=== PATIENT | male | born 1935 | race Caucasian/White ===

== ENCOUNTER → 2018-03-14 14:28 | Outpatient (CLI) | payer MEDICARE, OTHER, SELFPAY ==
--- NOTE | 2018-03-14 14:31 | DI.RAD.S_ITS ---
PROCEDURE: XR ANKLE RT MIN 3V INDICATIONS: Pain in ankle and foot TECHNIQUE: 3 views of the ankle were acquired. COMPARISON: None. FINDINGS: Bones: No fractures or dislocations. Ankle mortise is normally aligned. No suspicious bony lesions. Degenerative changes of the medial and lateral malleoli as well as the talonavicular and inter-talar joints. Soft tissues: No tibiotalar joint effusion. Achilles tendon appears normal. IMPRESSION: No acute bony abnormality. Arthritic changes. Dictated by: Anant Shrestha M.D. on 03/14/2018 at 14:47 Approved by: Anant Shrestha M.D. on 03/14/2018 at 14:49
== END ==
PROVIDERS: PCP Family Medicine; Visit Provider Nurse Practitioner Family
DX: M79.671 Pain in right foot (principal)
CPT/HCPCS: 73610

== ENCOUNTER → 2018-05-27 09:11 | Outpatient (CLI) | payer MEDICARE, OTHER, SELFPAY ==
[2018-05-27 10:52] LABS: Cholesterol 107 mg/dL (140-199); HDL Cholesterol 54 mg/dL (40-60); LDL Cholesterol Calculated 37 mg/dL (<100); Triglycerides 79 mg/dL (35-150)
== END ==
PROVIDERS: PCP Family Medicine; Visit Provider Family Medicine
DX: E78.5 Hyperlipidemia, unspecified (principal)
CPT/HCPCS: 36415; 80061

== ENCOUNTER 2018-11-09 08:19 | Day surgery (SDC) | payer MEDICARE, OTHER, SELFPAY ==
--- NOTE | 2018-11-08 17:07 | PM.PREOP ---
Pre-operative Note Interval Note History & Physical reviewed/Exam performed by Physician: Yes Changes to H&P: No
--- NOTE | 2018-11-09 07:53 | P.OP_ITS ---
Operative Date/Time/Diagnoses Date of procedure: 11/09/18 Time of procedure: 09:45 Procedure & Clinicians Procedure: Preoperative diagnoses: 1. Complex surgery with use of capsular dye. 2. Mature or advanced nuclear sclerotic and cortical cataract with poor visibility of the anterior capsule increasing surgical risks of complications. Astigmatism which he elects to correct with a toric IOL. 3. Floppy iris syndrome. Preoperative diagnoses: 1. 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 Postoperative diagnoses: 1. Complex surgery with use of capsular dye , Malyguin ring, ReSur glue and placement of a toric posterior chamber intraocular lens implant. Surgeon: Nilsa Paulino MD Complications: none Specimen: None Implant: [id number] axis 142 Blood loss: None Anesthesia: Retrobulbar with monitored standby. Description of procedure: Dictated by: Nilsa Paulino MD Copy to: [facility] capsular dye to improve visibility and safety. Postoperative diagnoses: 1. Cataract removed with use of capsular dye and Malyguin ring with placement of a toric posterior chamber intraocular lens. Procedure: Complex Phacoemulsification with toric posterior chamber intraocular lens implant,Malyguin ring and capsular dye. Also REsur glue due to floppy iris. Surgeon: Nilsa Paulino MD Blood loss: None Anesthesia: Retrobulbar with monitored standby Description of procedure: Patient has presented with decreased vision due to cataract which is affecting activities of daily living. The patient wants surgery to improve vision. The patient was taken to the operating room and proparacaine drops were placed. Indelible ink evans were placed at the 90 and 180 degree meridian. He was then placed on the operating room table and given IV sedation. A retrobulbar block consisting of 6 cc of 2% xylocaine without epinephrine mixed half and half with 0.5% Marcaine with 1 cc of hyaluronidase added is placed between the medial and lateral 1/3 of the inferior orbital rim. Lid akinesia is obtain with 1% xylocaine with epinephrine infiltrated along the lid margin. The eye is manually massaged for 30 sec, prepped using Betadine solution, and draped in the usual sterile fashion. Temporal approach was made, a 1 mm side-port incision was performed 90 degrees from the planned corneal wound. Phenylephrine 1.5% mixed with 1% xylocaine 0.2 cc was placed into the anterior chamber. An air bubble was placed and Visudyne dye was placed to improve visibility of the anterior capsule. The dye was irrigated out to reduce bubbles. Viscoat followed by Crystal was then placed. A 2.6 mm clear incision at the 180 degree meridian with a 2.6 mm blade was placed. Due to symptomatic use and floppy iris syndrome a 7.0 mm Malyguin ring was inserted into the anterior chamber and then sequentially hooked to every quadrant of the iris. A 360 degree capsulorrhexis style capsulotomy was then performed with a cystitome needle on a [place] aided by the capsular ring. Hydrodelineation and hydrodissection were performed. The phacoemulsification unit is introduced, and sculpting notice used to groove the central lens. It was very dense and extra viscoelastic was used. Zonules were loose but held. It is then removed in chopping mode. Epi nucleus is removed with epinuclear mode and irrigation aspiration was used to remove the peripheral cortex. The posterior capsule is polished. The intraocular lens is selected, inspected, power confirmed, and placed in the posterior chamber at the 142 degree position. The iris ring was removed. The wound was stromally hydrated and tested for leaks,there was mild iris proloapse to the wound. It was repositioned and hydrated. ReSur glue was placed on the clear corneal incison and allowed to set for one minute. Vigamox 0.1 cc was placed into the anterior chamber. Kenalog 0.2 cc was placed in the superior subconjunctival space. A drop of antibiotic and was placed and then a contact lens for comfort due to the glue. The eye was patched and shielded. The patient was stable and returned to the recovery room in excellent condition. He will resume his Flomax today. Dictated by: Nilsa Paulino MD Copy to: [facility] Same procedure as scheduled: Yes
[2018-11-09] MEDS: PROPARACAINE 0.5% OPHTH SOL 2 DROPS EYE-OP ×2 (08:45→10:07)
[2018-11-09 08:50] VITALS: BP 121/74; PULSE 59; RESP 16; TEMP 36.2; O2SAT 95; BMI 24.7
[2018-11-09] MEDS: CATARACT EYE COMPOUND (10 DROPS/SYRINGE) 3 DROPS EYE-OP (09:06)
[2018-11-09] MEDS: PHENYLEPHRINE/LIDOCAINE VIAL (OR) 0.2 ML EYE-OP (10:00)
[2018-11-09] MEDS: MOXIFLOXACIN OPHTH DROPS 3 ML BOTTLE 2 DROPS INJ (10:01)
[2018-11-09] MEDS: CHONDROIDTIN/SOD HYALURONATE 1.05 ML SYRINGE INTRAOCULA (10:02)
[2018-11-09] MEDS: TRIAMCINOLONE 50 MG/5 ML VIAL INJ (10:02)
[2018-11-09] MEDS: BALANCED SALT IRRIG SOLN NO.2 15 ML IRRIG.SOLN IRR (10:04)
[2018-11-09] MEDS: HYALURONATE SODIUM 10 MG/ML SYRINGE INJ (10:04)
[2018-11-09] MEDS: LIDOCAINE 1% W/EPI INJ 20 ML INJ (10:05)
[2018-11-09] MEDS: LIDOCAINE 2% 4 ML, BUPIVACAINE 0.5% (PF) 4 ML, HYALURONIDASE 150 UNIT INJ (10:06)
[2018-11-09] MEDS: NEOMYCIN/POLY/DEX OPHTH OINT 1 APPLIC EYE-LEFT (10:07)
[2018-11-09] MEDS: TRYPAN BLUE 0.5 ML SYRINGE INJ (10:08)
[2018-11-09] MEDS: BALANCED SALT IRRIG SOLN NO.2 500 ML, EPINEPHrine 1 MG IRR (10:09)
[2018-11-09] MEDS: OFLOXACIN 0.3% OPHTH 5 ML 2 DROPS EYE-LEFT (10:09)
--- NOTE | 2018-11-09 10:31 | SUR.OPER ---
Resure sealant lot [id number], exp. 2019-01-19
[2018-11-09 10:45] VITALS: BP 121/66; PULSE 69; RESP 15; TEMP 36.1; O2SAT 93
[2018-11-09 11:01] VITALS: BP 122/75; PULSE 66; RESP 16; TEMP 36.6; O2SAT 97
== END 2018-11-09 11:05 | disposition home or self-care (01) ==
LOC: OR 08:20
PROVIDERS: PCP Family Medicine; Visit Provider Ophthalmology
PROC: (CPT 66982; principal; 2018-11-09 09:45)
DX: H25.12 Age-related nuclear cataract, left eye (principal); H52.202 Unspecified astigmatism, left eye; H21.81 Floppy iris syndrome
CPT/HCPCS: 66982; J0171; J2250; J2704; J3010; J3301; J3470; V2787

== ENCOUNTER → 2018-11-11 08:54 | Outpatient (CLI) | payer MEDICARE, OTHER, SELFPAY ==
[2018-11-11 09:39] LABS: Add Manual Diff / Slide Review NO; Basophils Percent Auto 0.3 % (0-2); Eosinophils Percent Auto 1.8 % (2-4); Hematocrit 46.2 % (41-53); Hemoglobin 15.9 g/dL (13.5-17.5); Lymphocytes Percent Auto 21.6 % (25-40); Mean Corpuscular HGB Conc 34.3 % (30-36); Mean Corpuscular Hemoglobin 33.8 PG (26-34); Mean Corpuscular Volume 98.6 fL (80-100); Monocytes Percent Auto 9.3 % (3-14); Neutrophils Absolute Auto 3000 /uL (1500-7000); Platelet Count 182 X10^3/uL (150-400); Red Blood Cell Count 4.69 X10^6/uL (4.5-5.9); Red Cell Distribution Width 12.8 % (11.6-14.8); White Blood Cell Count 4.5 X10^3/uL (4.5-11.0)
[2018-11-11 09:42] LABS: Alanine Aminotransferase 39 IU/L (21-72); Albumin 4.3 g/dL (3.5-5.0); Albumin Globulin Ratio 1.5 (1.0-2.8); Alkaline Phosphatase 85 U/L (38-126); Aspartate Aminotransferase 34 IU/L (17-59); BUN Creatinine Ratio 15.6 (6-22); Bilirubin Total 1.1 mg/dL (0.2-1.3); Blood Urea Nitrogen 14 mg/dL (9-20); Carbon Dioxide 27 mmol/L (22-32); Chloride 105 mmol/L (98-107); Cholesterol 165 mg/dL (140-199); Estimated Glomerular Filt Rate > 60.0 mL/min (>60); Globulin 2.8 g/dL (1.7-4.1); Glucose 107 mg/dL (80-110); HDL Cholesterol 47 mg/dL (40-60); HEMOLYSIS < 15 (0-50); LDL Cholesterol Calculated 100 mg/dL (<100); Potassium 4.4 mmol/L (3.4-5.1); Sodium 142 mmol/L (137-145); Total Protein 7.1 g/dL (6.3-8.2); Triglycerides 91 mg/dL (35-150)
[2018-11-11 10:12] LABS: Prostate Specific Antigen Scrn 2.94 ng/mL (0.1-4.0)
== END ==
PROVIDERS: PCP Family Medicine; Visit Provider Family Medicine
DX: I10 Essential (primary) hypertension (principal); E78.5 Hyperlipidemia, unspecified; I25.10 Atherosclerotic heart disease of native coronary artery without angina pectoris; Z12.5 Encounter for screening for malignant neoplasm of prostate
CPT/HCPCS: 36415; 80053; 80061; 84443; 85025; G0103

== ENCOUNTER → 2018-11-29 16:34 | Outpatient (CLI) | payer MEDICARE, OTHER, SELFPAY ==
--- NOTE | 2018-11-29 16:40 | DI.MRI.S_ITS ---
PROCEDURE: MR ANKLE RT WO CON INDICATIONS: ANTERIOR RIGHT ANKLE PAIN, WEAKNESS TECHNIQUE: Noncontrast sagittal T1 spin echo and T2 fast spin echo with fat saturation, axial proton density fast spin echo and T2 fast spin echo with fat saturation, coronal T1 spin echo and T2 fast spin echo with fat saturation through the ankle/hindfoot. COMPARISON: None. FINDINGS: Image quality: Excellent. Bones and joints: No bone marrow contusions or fractures. There is [id number] mid foot degeneration with mild osteophytosis and scattered foci of subchondral edema. No hindfoot coalitions. No osteochondral injuries of the talar dome. No pathologic joint effusions. Medial structures: The posterior tibialis, flexor digitorum longus, and flexor hallucis longus tendons are intact. The posterior tibial neurovascular bundle appears normal within the tarsal tunnel, without extrinsic mass effect. The deltoid ligament is irregular and attenuated in appearance with associated small osteophytes along its attachment sites as well as small avulsion fragment. The findings is consistent with sequelae of a prior high-grade sprain. There are fibers which appear intact. The spring ligament components appear intact. Lateral structures: The anterior talofibular, calcaneofibular, and posterior talofibular ligaments appear intact. More superiorly, the anterior and posterior tibiofibular ligaments appear intact, as is the intermalleolar ligament. The tibiofibular syndesmosis is normal in width at 2 mm or less. The peroneus longus and brevis tendons appear intact. There is a prominent bony peroneal tubercle with an associated fibrous band attaching to the calcaneus posterior to the peroneal tendons consistent with postsurgical changes. The sinus tarsi demonstrates preserved high signal with associated mild edema and small adjacent fluid suggesting sequelae of ligamentous sprains. The calcaneonavicular and calcaneocuboid components of the bifurcate ligament appear intact. The dorsal calcaneocuboid ligament appears intact. Anterior structures: There is tendinopathy of the tibialis anterior tendon with a complete rupture and tendon retraction to the level of the tibiotalar joint. There is mild associated edema and fluid distally. The extensor hallucis longus and extensor digitorum longus tendons appear intact. The dorsal talonavicular ligament appears intact. Posterior and plantar structures: Achilles tendon is intact with mild tendinopathy. Medial and lateral bands of the plantar fascia are of normal thickness. There is a small plantar calcaneal enthesophyte. No abductor digiti quinti muscle atrophy to suggest Linares neuropathy. IMPRESSION: 1. 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 There is associated underlying tendinopathy noted. 2. Sequelae of a prior high-grade sprain of the deltoid ligament. 3. Postsurgical changes demonstrated posterior to the peroneal tendons at the peroneal tubercle. 4. [id number] mid foot degeneration. Dictated by: Moustapha Espinosa M.D. on 11/30/2018 at 10:42 Approved by: Moustapha Espinosa M.D. on 11/30/2018 at 10:51
== END ==
PROVIDERS: Family Provider Family Medicine; PCP Family Medicine; Visit Provider Orthopaedic Surgery Foot and Ankle Surgery
DX: M25.571 Pain in right ankle and joints of right foot (principal); S96.811A Strain of other specified muscles and tendons at ankle and foot level, right foot, initial encounter; M19.071 Primary osteoarthritis, right ankle and foot
CPT/HCPCS: 73721

== ENCOUNTER 2018-11-30 07:54 | Day surgery (SDC) | payer MEDICARE, OTHER, SELFPAY ==
--- NOTE | 2018-11-27 12:44 | PM.PREOP ---
Pre-operative Note Interval Note History & Physical reviewed/Exam performed by Physician: Yes Changes to H&P: No
--- NOTE | 2018-11-27 12:44 | PM.OP.1 ---
Operative Date/Time/Diagnoses Date of procedure: 11/30/18 Time of procedure: 08:45 Procedure & Clinicians Procedure: Preoperative diagnoses: 1. Complex surgery with use of capsular dye. 2. Mature or advanced nuclear sclerotic and cortical cataract with poor visibility of the anterior capsule increasing surgical risks of complications. 3. Astigmatism which he elects to correct with a toric intraocular lens. 4. 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 Postoperative diagnoses: 1. Complex surgery for mature cataract with use of capsular dye, a Malyguin ring and placement of a toric posterior chamber intraocular lens implant. Surgeon: Nilsa Paulino MD Complications: none Specimen: None Implant:[id number] +23.5Axis 020 Blood loss: None Anesthesia: Retrobulbar with monitored standby. Description of procedure: Dictated by: Nilsa Paulino MD Copy to: [facility] Procedure: Complex phacoemulsification with use of capsular dye, Malyguin ring and phacoemulsification with toric posterior chamber intraocular lens implant. Surgeon: Nilsa Paulino MD Blood loss: None Anesthesia: Retrobulbar with monitored standby Description of procedure: Patient has presented with decreased vision due to cataract which is affecting activities of daily living. The patient wants surgery to improve vision. 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 Understands increased risk of complications due to eye findings. The patient was taken to the operating room and given IV sedation. Topical proparacaine drops were placed. Indelible ink evans were placed at the 90 and 180 degree meridian. He was then placed on the operating room table. A retrobulbar block consisting of 6 cc of 2% xylocaine without epinephrine mixed half and half with 0.5% Marcaine with 1 cc of hyaluronidase added is placed between the medial and lateral 1/3 of the inferior orbital rim. Lid akinesia is obtain with 1% xylocaine with epinephrine infiltrated along the lid margin. The eye is manually massaged for 30 sec, prepped using Betadine solution, and draped in the usual sterile fashion. Temporal approach was made, a 1 mm side-port incision was performed 90 degrees from the planned corneal wound. Phenylephrine 1.5% mixed with 1% xylocaine 0.2 cc was placed into the anterior chamber. An air bubble was placed and Visudyne dye was placed to improve visibility of the anterior capsule. The dye was irrigated out to reduce bubbles. Viscoat followed by Crystal was then placed. A 2.6 mm clear incision with a 2.6 mm blade was placed. A 7.0 mm Malyuguin ring was opened into the anterior chamber and sequentially placed in each quadrant of the iris. Using this to stabilize the iris, enlarge the pupil and improve visibility a 360 degree capsulorrhexis style capsulotomy was then performed with a cystitome needle on [facility]. Hydrodelineation and hydrodissection were performed. The phacoemulsification unit is introduced, and sculpting used to groove the central lens. Very dense and zonules were somewhat loose but remain in position. It is then removed in chopping mode. Epi nucleus is removed with epinuclear mode and irrigation aspiration was used to remove the peripheral cortex. The posterior capsule is polished. Corneal markings were placed at the desired meridian 20?. The intraocular lens is selected, inspected, power confirmed, and placed in the posterior chamber in position. The pupil was not constricted with Miostat. The wound was stromally hydrated and tested for leaks, there was none and was left sutureless. Due to the longer corneal tunel to prrvent iris prolapse, which did not occur, a small Descemte's flap was present at the incision. Vigamox 0.1 cc was placed into the anterior chamber. An air bubble was then placed to stabilize the Descemet's flap.Kenalog 0.2 cc was placed in the superior subconjunctival space. A drop of antibiotic and was placed and the eye was patched and shielded. The patient was stable and returned to the recovery room in excellent condition. Dictated by: Nilsa Paulino MD Copy to: [facility]
--- NOTE | 2018-11-27 12:58 | P.OP_ITS ---
Operative Date/Time/Diagnoses Date of procedure: 11/30/18 Time of procedure: 08:45 Procedure & Clinicians Procedure: Preoperative diagnoses: 1. Complex surgery with use of capsular dye. 2. Mature or advanced nuclear sclerotic and cortical cataract with poor visibility of the anterior capsule increasing surgical risks of complications. 3. Astigmatism which he elects to correct with a toric intraocular lens. 4. 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 Postoperative diagnoses: 1. Complex surgery for mature cataract with use of capsular dye, a Malyguin ring and placement of a toric posterior chamber intraocular lens implant. Surgeon: Nilsa Paulino MD Complications: none Specimen: None Implant:[id number] +23.5Axis 020 Blood loss: None Anesthesia: Retrobulbar with monitored standby. Description of procedure: Dictated by: Nilsa Paulino MD Copy to: [facility] Procedure: Complex phacoemulsification with use of capsular dye, Malyguin ring and phacoemulsification with toric posterior chamber intraocular lens implant. Surgeon: Nilsa Paulino MD Blood loss: None Anesthesia: Retrobulbar with monitored standby Description of procedure: Patient has presented with decreased vision due to cataract which is affecting activities of daily living. The patient wants surgery to improve vision. 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 Understands increased risk of complications due to eye findings. The patient was taken to the operating room and given IV sedation. Topical proparacaine drops were placed. Indelible ink evans were placed at the 90 and 180 degree meridian. He was then placed on the operating room table. A retrobulbar block consisting of 6 cc of 2% xylocaine without epinephrine mixed half and half with 0.5% Marcaine with 1 cc of hyaluronidase added is placed between the medial and lateral 1/3 of the inferior orbital rim. Lid akinesia is obtain with 1% xylocaine with epinephrine infiltrated along the lid margin. The eye is manually massaged for 30 sec, prepped using Betadine solution, and draped in the usual sterile fashion. Temporal approach was made, a 1 mm side-port incision was performed 90 degrees from the planned corneal wound. Phenylephrine 1.5% mixed with 1% xylocaine 0.2 cc was placed into the anterior chamber. An air bubble was placed and Visudyne dye was placed to improve visibility of the anterior capsule. The dye was irrigated out to reduce bubbles. Viscoat followed by Crystal was then placed. A 2.6 mm clear incision with a 2.6 mm blade was placed. A 7.0 mm Malyuguin ring was opened into the anterior chamber and sequentially placed in each quadrant of the iris. Using this to stabilize the iris, enlarge the pupil and improve visibility a 360 degree capsulorrhexis style capsulotomy was then performed with a cystitome needle on [facility]. Hydrodelineation and hydrodissection were performed. The phacoemulsification unit is introduced, and sculpting used to groove the central lens. Very dense and zonules were somewhat loose but remain in position. It is then removed in chopping mode. Epi nucleus is removed with epinuclear mode and irrigation aspiration was used to remove the peripheral cortex. The posterior capsule is polished. Corneal markings were placed at the desired meridian 20?. The intraocular lens is selected, inspected, power confirmed, and placed in the posterior chamber in position. The pupil was not constricted with Miostat. The wound was stromally hydrated and tested for leaks , there was none and was left sutureless. Due to the longer corneal tunel to prrvent iris prolapse, which did not occur, a small Descemte's flap was present at the incision. Vigamox 0.1 cc was placed into the anterior chamber. An air bubble was then placed to stabilize the Descemet's flap.Kenalog 0.2 cc was placed in the superior subconjunctival space. A drop of antibiotic and was placed and the eye was patched and shielded. The patient was stable and returned to the recovery room in excellent condition. Dictated by: Nilsa Paulino MD Copy to: [facility]
[2018-11-30] MEDS: PROPARACAINE 0.5% OPHTH SOL 2 DROPS EYE-OP (08:10)
[2018-11-30] MEDS: CATARACT EYE COMPOUND (10 DROPS/SYRINGE) 3 DROPS EYE-OP ×3 (08:15→08:25)
[2018-11-30 08:20] VITALS: BP 131/72; PULSE 56; RESP 20; TEMP 36.1; O2SAT 97; BMI 24.7
[2018-11-30] MEDS: BALANCED SALT IRRIG SOLN NO.2 15 ML IRR (09:07)
[2018-11-30] MEDS: HYALURONATE SODIUM 10 MG/ML SYRINGE INJ (09:07)
[2018-11-30] MEDS: LIDOCAINE 1% W/EPI INJ 20 ML INJ (09:07)
[2018-11-30] MEDS: CHONDROIDTIN/SOD HYALURONATE 1.05 ML SYRINGE INTRAOCULA (09:07)
[2018-11-30] MEDS: OFLOXACIN 0.3% OPHTH 5 ML 2 DROPS EYE-RIGHT (09:08)
[2018-11-30] MEDS: NEOMYCIN/POLY/DEX OPHTH OINT 1 APPLIC EYE-RIGHT (09:08)
[2018-11-30] MEDS: MOXIFLOXACIN OPHTH DROPS 3 ML BOTTLE 2 DROPS INJ (09:08)
[2018-11-30] MEDS: PHENYLEPHRINE/LIDOCAINE VIAL (OR) 0.2 ML EYE-OP (09:09)
[2018-11-30] MEDS: TRYPAN BLUE 0.5 ML SYRINGE INJ (09:09)
[2018-11-30] MEDS: TRIAMCINOLONE 50 MG/5 ML VIAL INJ (09:09)
[2018-11-30] MEDS: BALANCED SALT IRRIG SOLN NO.2 500 ML, EPINEPHrine 1 MG IRR (09:10)
[2018-11-30] MEDS: LIDOCAINE 2% 4 ML, BUPIVACAINE 0.5% (PF) 4 ML, HYALURONIDASE 150 UNIT INJ (09:10)
[2018-11-30 09:40] VITALS: BP 122/68; PULSE 70; RESP 20; TEMP 36.1; O2SAT 95
== END 2018-11-30 09:55 | disposition home or self-care (01) ==
LOC: OR 07:57
PROVIDERS: Family Provider Family Medicine; PCP Family Medicine; Visit Provider Ophthalmology
PROC: (CPT 66982; principal; 2018-11-30 08:45)
DX: H25.11 Age-related nuclear cataract, right eye (principal); H52.201 Unspecified astigmatism, right eye; H21.81 Floppy iris syndrome
CPT/HCPCS: 66982; J0171; J2250; J3010; J3301; J3470; V2787

== ENCOUNTER 2019-08-12 00:42 | Emergency (ER) | payer MEDICARE, OTHER, SELFPAY ==
[2019-08-12 00:54] VITALS: BP 155/81; PULSE 77; RESP 20; TEMP 36.5; O2SAT 97
[2019-08-12 00:55] VITALS: BP 150/81; PULSE 77; RESP 20; TEMP 36.5; O2SAT 97
--- NOTE | 2019-08-12 02:38 | ED.ALLEREA ---
HPI - Allergic Reaction General Chief complaint: Allergic Reaction Stated complaint: Rash on legs and arms Time Seen by Provider: 08/12/19 02:37 Source: patient Mode of arrival: Ambulatory Limitations: no limitations History of Present Illness HPI narrative: A 2nd 83-year-old male comes to the emergency department with complaint of rash. Patient states that it is red it is not raised but it is very itchy. It started this evening. He has had these symptoms off in the past but usually it is slow progress is over 3 days and then improves with treatment with Benadryl and ice packs. Patient states this time it came on much more quickly and seemed to spread much farther than it typically does including his torso when it is typically just his extremities. Patient states he did have some exposure to [place] he has attributed to that but he is not sure. This week he started a new status on Wednesday, he also had his flu shot on Wednesday and he had a shot yesterday in his hip of steroids. He does not know if any of these could have contributed to his symptoms. He denies any other symptoms. No fevers, chills no swelling in the oropharynx, no wheezing or difficulty with breathing, no chest pain, no nausea, no vomiting. No other new GI or urinary symptoms. Related Data Home Medications Medication Instructions Recorded Confirmed ASPIRIN (#ASPIR 81) 81 mg PO Q DAY #0 01/26/12 08/10/19 CA PANTOTHENATE/FOLIC ACID/VIT 1 tab PO Q DAY #0 01/26/12 08/10/19 (MULTIVITAMIN) cholecalciferol (vitamin D3) 2,000 iu PO QDAY #0 01/26/12 08/10/19 [Vitamin D3] fluorouracil [Efudex] 1 ramon TOPICAL QDAY PRN 11/09/18 08/10/19 psyllium husk (aspartame) [Konsyl 1 cap PO SEE INSTRUCTIONS 11/09/18 08/10/19 Sugar-Free (aspartame)] Previous Rx's Medication Instructions Recorded cyclobenzaprine 10 mg PO TIDP PRN #60 tab 11/30/17 ibuprofen 600 mg PO Q6HP PRN #90 tab 11/30/17 nitroglycerin 0.4 mg sublingual 0.4 mg SUBLINGUAL SEE INSTRUCTIONS 08/01/19 tablet #30 tab rosuvastatin 5 mg tablet 5 mg PO DAILY #90 tab 08/01/19 tamsulosin 0.4 mg capsule 0.4 mg PO QDAY #90 cap 08/01/19 Allergies Allergy/AdvReac Type Severity Reaction Status Date / Time sour cream Allergy Mild Uncoded 08/10/19 09:57 BLUE CHEESE Allergy Unknown Uncoded 08/10/19 09:57 GORGONZOLA Allergy Unknown Uncoded 08/10/19 09:57 Review of Systems Review of Systems ROS Unobtainable: All systems reviewed & are unremarkable except as noted in HPI and below Patient History Family/Social History Social History marital status: household members: spouse Smoking Status: Never smoker alcohol intake: never substance use type: does not use Substance Use Type: does not use Exam Narrative Exam Narrative: GEN: well nourished, well appearing elderly male, alert and oriented x 3, patient appears to be in no acute distress. HEENT: Atraumatic, pupils are equal round reactive to light, extraocular movements are intact, nares are clear, TMs shows cerumen bilaterally. Throat is clear without any exudates, erythema, tonsillar enlargement or uvular deviation, no facial droop. Patient is little bit hoarse but states that is his normal voice. No muffled voice. HEART: Regular rate and rhythm without murmur, clicks, rubs. LUNGS:Lungs clear to auscultation, no wheezes, rales, crackles, chest moves symmetrically ABD:bowel sounds normal, soft, non-tender, no guarding, rebound, rigidity, no masses noted, no hepatosplenomegaly :No CVA tenderness MSCL: Non-tender, no muscle atrophy, muscles strength 5/5 upper and lower extremities, full range of motion, normal gait NEURO:CN 2-12 intact, sensation normal SKIN: Patient has erythematous macular rash that is not raised it is sort of patchy but does not have a specific pattern. Noted on the upper torso and chest and abdomen. Also upper extremities and lower extremities. No vesicles no other skin changes. Initial Vital Signs Initial Vital Signs: Vital Signs Temperature 97.7 F 08/12/19 00:54 Pulse Rate 77 08/12/19 00:54 Respiratory Rate 20 08/12/19 00:54 Blood Pressure 155/81 H 08/12/19 00:54 Pulse Oximetry 97 08/12/19 00:54 Course Orders Ordered: Discontinued Medications Prednisone (Deltasone) 60 mg PO NOW ONE Stop: 08/12/19 02:53 Last Admin: 08/12/19 02:59 Dose: Not Given Documented by: ROBBFARL Prednisone (Deltasone) 60 mg PO NOW ONE Stop: 08/12/19 03:01 Last Admin: 08/12/19 03:09 Dose: 60 mg Documented by: LISA Vital Signs Vital signs: Vital Signs - 8 hr 08/12/19 00:54 08/12/19 00:55 08/12/19 03:01 Temperature 97.7 F 97.7 F Pulse Rate 77 77 66 Respiratory Rate 20 20 18 Blood Pressure 150/81 H Blood Pressure [Left Arm] 155/81 H 147/70 H Pulse Oximetry 97 97 97 08/12/19 03:10 Temperature Pulse Rate 67 Respiratory Rate 15 Blood Pressure Blood Pressure [Left Arm] Pulse Oximetry 98 MDM - Allergic Reaction MDM Narrative Medical decision making narrative: Unsure of the cause of patient's rash, sound similar to the one he has had in the past but he also has had 3 potential exposures today although the steroid injection is unlikely. Patient does not have any anaphylactic type symptoms. This rash does not appear consistent with hives. He initiated primary care physician for this several times in the past and is happy to follow with them. Discharge Plan Departure Patient Disposition: Home Clinical Impression: Rash Discharge Date/Time: 08/12/19 03:10 Instructions: DI for Rash Activity Restrictions/Additional Instructions: Follow-up with your primary care, call Wednesday for an appointment. Take prednisone once daily until gone. Continue ice packs as needed for symptoms. You may also continue Benadryl 1-2 tablets every 6 hours as needed for symptoms. I would recommend holding here statin until your symptoms resolved and then potentially adding it back to see if there is any recurrence. Return to the emergency department for fevers greater 100.4, swelling of her face, lips, tongue, difficulty breathing, chest pain, persistent vomiting, black or bloody stools new swelling of extremities or other new or concerning symptoms. Prescriptions: No Action ASPIRIN (#ASPIR 81) 81 mg PO Q DAY Qty: 0 RF: 0 CA PANTOTHENATE/FOLIC ACID/VIT (MULTIVITAMIN) 1 tab PO Q DAY Qty: 0 RF: 0 cholecalciferol (vitamin D3) [Vitamin D3] 2,000 UNIT capsule 2,000 iu PO QDAY Qty: 0 RF: 0 cyclobenzaprine 10 MG tablet 10 mg PO TIDP PRNQty: 60 RF: 0 ibuprofen 600 MG tablet 600 mg PO Q6HP PRNQty: 90 RF: 3 nitroglycerin [Nitrostat] 0.4 mg tablet, sublingual 0.4 mg Sublingual SEE INSTRUCTIONS Qty: 30 RF: 3 tamsulosin [Flomax] 0.4 mg capsule 0.4 mg PO QDAY Qty: 90 RF: 3 rosuvastatin [Crestor] 5 mg tablet 5 mg PO DAILY Qty: 90 RF: 3 fluorouracil [Efudex] 5 % cream 1 ramon Topical QDAY PRN (Reason: skin cancer ) RF: 0 psyllium husk (aspartame) [Konsyl Sugar-Free (aspartame)] 450 GM powder 1 cap PO SEE INSTRUCTIONS RF: 0 Referrals: Vinayak Albert MD [Primary Care Provider] -
[2019-08-12 03:01] VITALS: BP 147/70; PULSE 66; RESP 18; O2SAT 97
[2019-08-12] MEDS: predniSONE 20 MG TABLET 60 MG PO (03:09)
[2019-08-12 03:10] VITALS: PULSE 67; RESP 15; O2SAT 98
== END 2019-08-12 03:10 | disposition home or self-care (01) ==
PROVIDERS: Emergency Provider Emergency Medicine; Family Provider Family Medicine; PCP Family Medicine
DX: R21 Rash and other nonspecific skin eruption (principal)
CPT/HCPCS: 99282; 99283

== ENCOUNTER → 2019-09-21 14:30 | Outpatient (CLI) | payer MEDICARE, OTHER, SELFPAY ==
--- NOTE | 2019-09-21 14:33 | DI.RAD.S_ITS ---
PROCEDURE: XR KNEE RT 3V INDICATIONS: rt knee pain TECHNIQUE: 3 views of the knee were acquired. COMPARISON: None. FINDINGS: Bones: No fractures or dislocations. No suspicious bony lesions. Severe patellofemoral joint space narrowing. Scattered degenerative subchondral sclerosis and spurring. Soft tissues: Small joint effusion. No suspicious soft tissue calcifications. IMPRESSION: Severe right knee joint degeneration, most pronounced at the patellofemoral compartment. Small joint effusion Dictated by: Mati Mckeon M.D. on 09/21/2019 at 16:39 Approved by: Mati Mckeon M.D. on 09/21/2019 at 16:40
== END ==
PROVIDERS: PCP Family Medicine; Visit Provider Family Medicine
DX: S83.8X1A Sprain of other specified parts of right knee, initial encounter (principal); M25.561 Pain in right knee; M17.11 Unilateral primary osteoarthritis, right knee; M25.461 Effusion, right knee; X58.XXXA Exposure to other specified factors, initial encounter
CPT/HCPCS: 73562

== ENCOUNTER → 2019-11-13 08:33 | Outpatient (CLI) | payer MEDICARE, OTHER, SELFPAY ==
[2019-11-13 09:39] LABS: Add Manual Diff / Slide Review NO; Basophils Absolute Auto 0 /uL (0-100); Basophils Percent Auto 0.4 % (0-2); Eosinophils Absolute Auto 200 /uL (0-450); Eosinophils Percent Auto 4.3 % (2-4); Hematocrit 44.1 % (41-53); Hemoglobin 14.7 g/dL (13.5-17.5); Lymphocytes Absolute Auto 900 /uL (1100-4500); Lymphocytes Percent Auto 17.2 % (25-40); Mean Corpuscular HGB Conc 33.4 % (30-36); Mean Corpuscular Hemoglobin 33.4 PG (26-34); Mean Corpuscular Volume 100.1 fL (80-100); Monocytes Absolute Auto 500 /uL (0-900); Monocytes Percent Auto 9.4 % (3-14); Neutrophils Absolute Auto 3600 /uL (1500-7000); Neutrophils Percent Auto 68.7 % (50-75); Platelet Count 191 X10^3/uL (150-400); Red Blood Cell Count 4.41 X10^6/uL (4.5-5.9); Red Cell Distribution Width 13.3 % (11.6-14.8); White Blood Cell Count 5.3 X10^3/uL (4.5-11.0)
[2019-11-13 10:08] LABS: Alanine Aminotransferase 28 IU/L (<50); Albumin 3.9 g/dL (3.5-5.0); Albumin Globulin Ratio 1.6 (1.0-2.8); Alkaline Phosphatase 103 U/L (38-126); Aspartate Aminotransferase 32 IU/L (17-59); Bilirubin Total 0.7 mg/dL (0.2-1.3); Blood Urea Nitrogen 24 mg/dL (9-20); Carbon Dioxide 28 mmol/L (22-32); Chloride 106 mmol/L (98-107); Estimated Glomerular Filt Rate > 60.0 mL/min (>60); Globulin 2.5 g/dL (1.7-4.1); Glucose 97 mg/dL (80-110); HEMOLYSIS < 15 (0-50); Potassium 4.5 mmol/L (3.4-5.1); Sodium 140 mmol/L (137-145); Total Protein 6.4 g/dL (6.3-8.2)
== END ==
PROVIDERS: PCP Family Medicine; Visit Provider Family Medicine
DX: Z01.812 Encounter for preprocedural laboratory examination (principal)
CPT/HCPCS: 80053; 85025

== ENCOUNTER 2019-11-22 07:50 | Day surgery (SDC) | payer MEDICARE, OTHER, SELFPAY ==
[2019-11-21 08:18] VITALS: BMI 19.3
[2019-11-22] VITALS (12 sets, daily range): BP systolic 91–143; BP diastolic 33–86; PULSE 55–71; RESP 11–17; TEMP 36–36.7; O2SAT 93–97; BMI 19.3
--- NOTE | 2019-11-22 07:36 | DI.RAD.S_ITS ---
PROCEDURE: XR KNEE RT 1TO2V INDICATIONS: post op TECHNIQUE: 2 view(s) of the knee acquired. COMPARISON: [facility], , XR KNEE RT 3V, 09/21/2019, 14:30. FINDINGS: Bones: Patient is status post knee joint arthroplasty. Hardware components are in expected positions. Visualized bony structures are intact. Soft tissues: Overlying postoperative changes are noted. IMPRESSION: Normal alignment after right total knee arthroplasty. Dictated by: Williams Fuentes M.D. on 11/22/2019 at 11:22 Approved by: Williams Fuentes M.D. on 11/22/2019 at 11:23
[2019-11-22] MEDS: LACTATED RINGERS 1,000 ML 42 ML IV ×2 (08:30→10:30)
[2019-11-22] MEDS: PREGABALIN 75 MG CAPSULE PO (08:32)
[2019-11-22] MEDS: ACETAMINOPHEN 325 MG TABLET 975 MG PO (08:32)
[2019-11-22] MEDS: CELECOXIB 200 MG CAPSULE PO (08:33)
--- NOTE | 2019-11-22 08:57 | PM.PREOP ---
Pre-operative Note Interval Note History & Physical reviewed/Exam performed by Physician: Yes Changes to H&P: No
[2019-11-22] MEDS: MIDAZOLAM 2 MG/2 ML VIAL 1 MG IV (09:00)
[2019-11-22] MEDS: fentaNYL 100 MCG/2 ML INJ 50 MCG IV (09:00)
[2019-11-22] MEDS: CEFAZOLIN 2 GM/100 ML FROZ.PIGGY IV ×2 (09:14→17:14)
--- NOTE | 2019-11-22 09:17 | SUR.PREOP ---
Block start time [0859] . Monitoring initiated and maintained throughout procedure. Oxygen and medications given per anesthesiologist instructions. Patient remained stable throughout procedure, no adverse reactions noted. Block end time [0909
[2019-11-22] MEDS: LIDOCAINE 1% W/EPI 20 ML INJ (09:20)
--- NOTE | 2019-11-22 09:35 | P.OP_ITS ---
Operative Date/Time/Diagnoses Date of procedure: 11/22/19 Time of procedure: 11:02 Pre-op diagnosis: Right knee osteoarthritis Post-op diagnosis: same Procedure & Clinicians Procedure: Right total knee arthroplasty Same procedure as scheduled: Yes Indications: The patient presents today for total knee arthroplasty after failure of conservative treatment. The nature of the procedure including the risks and benefits, alternatives, postoperative course and expected outcome were discussed and all questions answered. Consent was obtained. Operative site confirmed and marked. Surgeon: Moustapha Leon Motor Racer: Jimenez Adams Anesthesia Type: Spinal, Peripheral nerve block and Local Operative Notes Findings: The knee had severe osteoarthritis with moderate valgus alignment. The knee balanced well with just routine osteophyte removal and exposing releases. There was just slight increased tightness medially as opposed to laterally in flexion and extension. The knee easily came out to full extension. Patellar tracking was excellent. Closure Type: primary Specimen(s): none sent Prosthetic devices, grafts, tissues, transplants, or devices: Gray [employer] Nephew Perla BCS: [xx] femoral component, [xx] tibial component, [xx] mm BCS polyethylene tray and [xx] mm round patella Applied: implant(s) Estimated Blood Loss (mL): 15 Blood products transfused: none Tourniquet time (min): 52 Procedure in detail: The patient was taken to the operative suite and placed under spinal anesthesia with an adductor nerve block. The patient was given prophylactic antibiotics prior to surgery. The patient was also given tranexamic acid, 1 g, just prior to surgery for postoperative hemostasis. The lateral knee was prepped and the joint injected with 20 mL of 1% Lidocaine with epinephrine. The knee was then prepped and draped in usual sterile fashion. The leg was exsanguinated with an Esmarch dressing and the tourniquet raised to 250 torr. A 15 cm anterior incision was made. Next a medial trivector arthrotomy was made. The extensor mechanism was marked to ensure accurate repair. Initial exposing dissection was carried out medially and laterally. The knee was then flexed and the intramedullary femoral guide darien placed. The distal femoral cut was made in 6 ? of valgus at the +0 position. The femoral size was measured and the appropriate cutting block was then placed and the anterior, posterior and chamfer cuts made. The intramedullary tibial alignment darien was then placed. The guide was set to remove approximately 9 mm from the le ss affected medial side. The proximal tibial cut was then made with an oscillating saw. All meniscus and bony debris was then removed. Posterior femoral osteophytes removed with a curved osteotome. Flexion extension gaps were checked. No specific balancing was required other than routine exposure and removal of osteophytes.. The soft tissues were then injected with a combination of 20 mL of half percent Marcaine with epinephrine and 20 mL of Exparel. The trial components were then placed. The knee was then extended and the patellar thickness was measured and a cut made removing approximately 9 mm of bone. The patella was then sized and drilled. Some excess lateral bone was excised and the patellofemoral ligament released. The knee went into full extension and flexion beyond 120?. There was good medial-lateral balance throughout motion with just slight increased tightness medially is exposed laterally both in flexion and extension. Patellar tracking was excellent. The trial components were removed and the knee was cleansed with Pulsavac irrigation and dried. The final components were cemented with high viscosity vacuum mixed bone cement with antibiotics. The joint was filled with a dilute Betadine solution. The knee was held in extension and the patellar clamped until the cement was adequately cured. The knee was then irrigated. The extensor mechanism was closed with 5 interrupted #1 Vicryl sutures and a running Quill suture at approximately 90 degrees of flexion. The joint was then injected with a combination of 1 g of tranexamic acid and 20 mL of quarter percent Marcaine with epinephrine. The subcutaneous tissue was closed with 2 0 Vicryl. The skin was closed with rigo and surgical adhesive. An Aquacel dressing and Bravo wrap were then applied. The patient tolerated the procedure well and was returned to recovery room in good condition. Complications: none Post-operative Condition: stable Disposition: PACU Plan for aftercare: [facility] protocol for total knee arthroplasty.
--- NOTE | 2019-11-22 09:50 | SUR.OPER ---
Supine on padded OR bed. Pillow under head, arms secured on padded armboards <90 degree abduction. Safety belt across torso. Non-operative leg secured with tape over blanket over lower leg. Operative leg secured in [employer]o/Hugo positioner. Foam padded brace at thigh of operative leg.
[2019-11-22] MEDS: BUPIVACAINE 0.25% W/ EPI (PF) 20 ML, TRANEXAMIC ACID 1,000 MG, SODIUM CHLORIDE 0.9% 10 ML INJ (09:56)
[2019-11-22] MEDS: BUPIVACAINE 0.25% W/ EPI (PF) 40 ML, BUPIVACAINE LIPOSOME 266 MG, SODIUM CHLORIDE 0.9% ... INJ (09:57)
[2019-11-22] MEDS: SODIUM CHLORIDE IRRIG SOLUTION 250 ML, POVIDONE-IODINE SPONGE STICKS 1 APPLIC IRR (10:01)
--- NOTE | 2019-11-22 11:41 | SUR.PHASEI ---
report to david NICHOLSON AC. Awaiting transfer to AC
[2019-11-22] MEDS: IBUPROFEN 400 MG TABLET PO ×2 (13:11→17:14)
[2019-11-22] MEDS: TAMSULOSIN 0.4 MG CAPSULE PO (13:11)
[2019-11-22] MEDS: LACTATED RINGERS 1,000 ML 125 ML IV (13:11)
--- NOTE | 2019-11-22 14:31 | PC.NURSE ---
AM Shift. I received report from Norma and assumed nursing role for patient. pt denying pain, I assessed KALLIE wrap, pulses palpable, and full sensation to right foot. Patient asked when he will be able to get up. I provided insight to PT and needing to use the urinal and going to the bathroom, pt agreed. Family in the room. PIV infusing LR at 125/hr.
--- NOTE | 2019-11-22 14:47 | PT.IIE ---
Current Diagnoses Bilateral primary osteoarthritis of knee (11/22/19) Surgery Performed Operation Date: 11/22/19 09:45 Actual Procedures p Total Knee Arthroplasty(Right) - Moustapha Leon MD Surgical History (Last Reviewed 11/15/18 @ 11:04 by Malia Brito LPN) Anesthesia (Resolved) Fractures (Resolved) History of arthroscopy (Resolved) Peroneal tendon injury (Resolved ~1956) Status post hernia repair (~1997) Status post hernia repair (~2002) Medical History (Last Updated 11/21/19 @ 09:34 by Denise Tran RN) Benign positional vertigo (Acute ~03/2019) Bilateral primary osteoarthritis of knee (Acute) Cataract fragments in both eyes following surgery (Acute) Chicken pox (Resolved ~1944) Degenerative joint disease (DJD) of lumbar spine (Chronic) Diverticular disease (Chronic ~2000) Foot pain (Chronic ~2013) GERD (gastroesophageal reflux disease) (Chronic) H/O coronary angiogram (Acute) Hearing loss (Chronic ~1967) Hyperlipidemia (Chronic) Hypertension (Chronic) Measles (Resolved ~1941) Mumps (Resolved ~1971) PAC (premature atrial contraction) (Acute) Pruritic rash (Chronic) Rubella (Resolved ~1939) Shoulder pain (Chronic ~2012) Tinea pedis (Chronic ~1965) Physical Therapy Inpatient Evaluation/Re-Eval M1 PT/OT-IP Prior Functional Status Start: 11/22/19 16:03 Freq: NEEDED Status: Active Protocol: Document 11/22/19 14:47 AB (Rec: 11/22/19 16:26 AB [id number]) Medical Review Prior Functional Status Medical History Reviewed Yes Communication able to make needs known Mobility and Gait pt stated that he is independent with all mobilities and ambulation without AD Social History Household Members spouse Living Arrangements House Number of Floors (Floors) Two Floors Number of Stairs To Enter/Railing? pt stays on main level of the house has 1 step to enter Home Environment High Toilet,Walk in Shower Home Equipment Front Wheel Walker,Straight Cane,Shower Seat without Backrest,Grab Bars In Shower M2 PT-IP Current Condition Start: 11/22/19 16:03 Freq: NEEDED Status: Active Protocol: Document 11/22/19 14:47 AB (Rec: 11/22/19 16:26 AB [id number]) Physical Therapy Current Condition Current Condition Evaluation Date 11/22/19 Treatment Diagnosis s/p R TKA; difficulty in walking Onset Date 11/22/2019 Weight Bearing Status Weight Bearing Status Weight Bear as Tolerated Allowed Weight Bearing Amount (enter % RLE WBAT or #) (%) M3 PT-IP Subjective Start: 11/22/19 16:03 Freq: NEEDED Status: Active Protocol: Document 11/22/19 14:47 AB (Rec: 11/22/19 16:26 AB [id number]) Subjective Physical Therapy Visit Type Type Initial Evaluation Visit Start Time 14:47 Visit Stop Time 15:51 Total Visit Minutes 45 Notes pt seen for split visits: 1447 - 1509 and 1528 - 1551 Number of SCHOOL OPERATIONS MANAGER Visits 0 Physical Therapy Visit Comments Patient Comments pt agreeable to do PT Therapy Pain Assessment Pain When Pain Assessed During Weight Bearing Pain Present Pain Present Pain Reported Location Right Knee Intensity 2 M4 PT-IP Mobility and Gait Start: 11/22/19 16:03 Freq: NEEDED Status: Active Protocol: Document 11/22/19 14:47 AB (Rec: 11/22/19 16:26 AB [id number]) PT-Bed Mobility Assessment Supine to Sit Supine to Sit Standby Assistance PT-Transfer Assessment Sit to and From Stand Sit to and from Stand Standby Assistance,Contact Guard Assistance Equipment Transfer Assistive Device Gait Belt,Front Wheeled Walker Orthotic/Prosthetic Devices or Brace: No Transfers Transfer Destination Toilet Transfer Technique ambulated using FWW Transfer Ability Level of Assist Standby Assistance,Contact Guard Assistance,1 Person Assistance,Use of Upper Extremities Comments Mobility Comments pt supine in bed and agreeable to do PT. completed supine to sit SBA. was able to sit on EOB SBA. completed sit to stand SBA to CGA and ambulated to the toilet using FWW SBA to CGA. pt was able to maintain standing using FWW for support CGA while completing toileting. pt afterwards want s to sit on the toilet and completed CGA. pt wants to use the toilet for a few more minutes. call light placed within reach. informed NAC that pt is using the toilet. checked back on pt after a few minutes. pt has just gotten out of the toilet with NAC. pt sat on chair. agreed to do more ambulation and stairs climbing. completed ambulation using FWW ~60 ft towards the stairs SBA. cues to slow down. pt completed stair training and spouse was able to assist pt. pt ambulated back to the room using FWW SBA. pt positioned on chair. call light and table placed within reach. pt expressed desire to go home today. Gait Assessment Gait Gait Assistance Required: Standby Assistance,Contact Guard Assist Distance (Feet) 60 Able to Maintain Weight Bearing Status Yes During Gait Assistive Devices Assistive Device Gait Belt,Front Wheeled Walker Orthotic/Prosthetic Devices or Brace: No Gait Deviations General Gait Pattern Antalgic Factors Limiting Gait Function Factors Limiting Gait Function Decreased Strength,Pain,Poor Balance,Poor Safety Awareness Comments Gait Comments Pt ambulated in room initially during transfers using FWW and required SBA to [facility] but improved with ambulation and completed using FWW 60+[address] requiring SBA. Stair Climbing Assessment Evaluation Level of Assist On Stairs Contact Guard Assistance Devices Stair Climbing Assistive Devices Front Wheel Walker Technique/Endurance Stair Climbing Direction Ascend and Descend Stair Climbing Technique Step to Step Number of Steps Climbed 1 Query Text: Stair Climbing Set # Repetitions (reps) 2 Comments Stair Climbing Comments up/down platform step using FWW CGA x 2 reps. PT assisted pt initially and then spouse counter demonstrated on 2nd rep and was able to assist pt safely. PT-Balance Assessment Sitting Balance and Reactions Static Sitting Balance Ability Good Dynamic Sitting Balance Ability Good Standing Balance and Reactions Static Standing Balance Ability Fair Dynamic Standing Balance Ability Fair Device Used FWW M5 PT-IP Objective Assessments Start: 11/22/19 16:03 Freq: NEEDED Status: Active Protocol: Document 11/22/19 14:47 AB (Rec: 11/22/19 16:26 AB [id number]) Orientation Orientation/Cognition Level of Alertness Alert Orientation Name,Place,Situation Language Function Ability Hard of Hearing Safety Awareness Decreased Safety Awareness Gross Range of Motion Lower Extremity ROM Assessment Within Functional Limits Impairments R knee flexion: ~ 100 deg Strength Lower Extremity Strength Assessment Right Impaired Hip 4-/5 Knee 3+/5 Coordination Assessment Gross Coordination Gross Coordination WNL Sensation Assessment Sensation Gross Sensation WNL Muscle Tone Muscle Tone WNL Yes M6 PT-IP Treatment Start: 11/22/19 16:03 Freq: NEEDED Status: Active Protocol: Document 11/22/19 14:47 AB (Rec: 11/22/19 16:26 AB [id number]) Physical Therapy Treatment Exercises Exercises Heel Slides Education Education Provided Precautions,Weight Bearing Status,Post-Op Packet,Safety M7 PT-IP Assessment and Plan Start: 11/22/19 16:03 Freq: NEEDED Status: Active Protocol: Document 11/22/19 14:47 AB (Rec: 11/22/19 16:26 [id number]) PT Summary Assessment and Plan Potential Rehabilitation Potential Good Status of Condition at Evaluation Stable Summary Impairments Pain,ROM,Strength,Balance, Coordination,Cognition,Bed Mobility,Transfers,Gait, Activity Tolerance Assessment Summary pt requiring SBA to CGA with mobility. spouse was able to assist pt safety with stair climbing. pt will have his family around to assist him at home. pt stated that he is set up for outpt PT. pt may go home when medically stable. Goals Bed Mobility Goal Independent Transfer Goal Independent,Front Wheeled Walker Gait Goal Independent,Front Wheel Walker Gait Distance 200 Other Goals up/down 1 step using FWW SBA Days to Meet Goals 5 Frequency of Treatment Frequency Of Treatment Twice a Day Treatment Plan Physical Therapy Treatment Plan Bed Mobility Training,Transfer Training,Gait Training, Therapeutic Exercise,Balance Retraining,Post Op Education, Discharge Planning,Hot or Cold Pack,Neuromuscular Re-ed, Coordination Retraining,Manual Therapy Recommendations To Nursing Amount of Assist Needed 1 Person Assist Discharge Recommendations PT Discharge Recommendations Home with Assistance, Outpatient PT
[2019-11-22] MEDS: ACETAMINOPHEN 325 MG TABLET 650 MG PO (15:00)
--- NOTE | 2019-11-22 17:06 | PC.NURSE ---
Addendum entered by Kyung Benton R.N. 11/22/19 18:48: Pt reports pain right knee 1/10. Family has arrived to escort pt to home. Encouraged pt to review [facility] materials and pt agrees. Discharge instructions in verbal and written format provided to pt and pt's family per pt's request. Pt reports has narcotics at home as prescribed to treat postop pain as needed. Room air 95%. IV removed intact from left hand. Pt reports feels as though bladder is emptying with each void. States voiding frequent small amounts of urine can be pattern at home as well. BEHAVIOR SPECIALIST assists pt with dressing. Pt left hospital in stable condition with family members with personal effects accounted for with BEHAVIOR SPECIALIST escort via wheelchair. Addendum entered by Kyung Benton R.N. 11/22/19 18:03: MATTHEW Gaona has seen pt this evening shift and discharge was ordered. Pt took general diet without difficulty and is sitting up in recliner reading. Family has left the facility for dinner and awaiting their return to provide discharge instructions as per pt request. Original Note: Pt up in hallway with P.T. Back to room after ambulation and work with P.T. and pt is cleared as safe to discharge as per P.T. Pt does express desire to do so. Pt has spouse and other family members present and involved in care. Pt up in recliner. Admits to dull pain right knee 2/10. Has ice to site. Admits to full sensation to BL LE's. I.S. teaching done and pt able to perform to 2900. Standby assist to bathroom to void. Denies difficulty with voiding.
--- NOTE | 2019-11-23 11:27 | PM.DS.1 ---
History of Present Illness History of Present Illness Date Patient Seen: 11/22/19 Time Patient Seen: 16:27 Chief complaint: 224[address] Narrative: Patient's pain was mild. Able the urinate on his own. and son home to assist him. Discharge Providers Provider Date of admission: 11/22/19 07:50 Discharge Date: 11/22/19 Primary care physician: Vinayak Albert MD Consults: 11/22/19 12:04 Consult to Discharge Planning Routine Comment: Consult to Physical Therapy Evaluate & Treat Comment: Physician Instructions: postop TKA protocol Consult to Respiratory Therapy Evaluate & Treat Comment: Physician Instructions: Evaluate and treat Discharge provider: Jimenez Adams PA-C Summary Hospital Course Discharge Diagnosis: Right knee osteoarthritis Hospital Course: Procedure: Right total knee arthroplasty Same procedure as scheduled: Yes Indications: The patient presents today for total knee arthroplasty after failure of conservative treatment. The nature of the procedure including the risks and benefits, alternatives, postoperative course and expected outcome were discussed and all questions answered. Consent was obtained. Operative site confirmed and marked. Surgeon: Moustapha Leon Scrap Drop Engineer: Jimenez Adams Anesthesia Type: Spinal, Peripheral nerve block and Local Operative Notes Findings: The knee had severe osteoarthritis with moderate valgus alignment. The knee balanced well with just routine osteophyte removal and exposing releases. There was just slight increased tightness medially as opposed to laterally in flexion and extension. The knee easily came out to full extension. Patellar tracking was excellent. Closure Type: primary Specimen(s): none sent Prosthetic devices, grafts, tissues, transplants, or devices: Gray and Nephred Duncan BCS: [xx] femoral component, [xx] tibial component, [xx] mm BCS polyethylene tray and [xx] mm round patella Applied: implant(s) Estimated Blood Loss (mL): 15 Blood products transfused: none Tourniquet time (min): 52 P Status at Discharge Cognitive/behavioral status at discharge: at baseline, oriented Functional status at discharge: uses cane/walker Overall status at discharge: patient is progressing back to baseline Time Spent with Patient Time spent: Less than 30 minutes Exam Vital Signs (past 8 hours): Oxygen Delivery Method Room Air Oxygen Flow Rate 0 Narrative Exam Narrative: 84-year-old male sitting comfortably in bedside chair in no apparent distress. Dressing is clean, dry and intact. Motor function intact distally. Sensation intact distal right lower extremity. Discharge Plan Discharge Plan Patient Disposition: Home Discharge orders & Medications Prescriptions: Continued metoprolol succinate 25 mg capsule,sprinkle,ER 24hr 25 mg PO DAILY Qty: 5 RF: 0 ASPIRIN (#ASPIR 81) 81 mg PO Q DAY Qty: 0 RF: 0 CA PANTOTHENATE/FOLIC ACID/VIT (MULTIVITAMIN) 1 tab PO Q DAY Qty: 0 RF: 0 cholecalciferol (vitamin D3) [Vitamin D3] 2,000 UNIT capsule 2,000 iu PO QDAY Qty: 0 RF: 0 cyclobenzaprine 10 MG tablet 10 mg PO TIDP PRNQty: 60 RF: 0 nitroglycerin [Nitrostat] 0.4 mg tablet, sublingual 0.4 mg Sublingual SEE INSTRUCTIONS Qty: 30 RF: 3 tamsulosin [Flomax] 0.4 mg capsule 0.4 mg PO QDAY Qty: 90 RF: 3 rosuvastatin [Crestor] 5 mg tablet 5 mg PO DAILY Qty: 90 RF: 3 fluorouracil [Efudex] 5 % cream 1 ramon Topical QDAY PRN (Reason: skin cancer ) RF: 0 ibuprofen 600 MG tablet 600 mg PO Q6HP PRN (Reason: Pain) RF: 0 coenzyme Q10 [Co Q-10] 100 mg Capsule 100 mg PO DAILY RF: 0 Follow up/Referrals: Moustapha Leon MD [Physician] - (1 wk ) Vinayak Albert MD [Primary Care Provider] - Discharge Health Status Multidrug resistant organism: No MDRO Diet/Activity/Treatments Diet: Diet as Tolerated Activity: per [facility] Cold/Heat Therapy: per [facility] Other treatments: ibuprofen and tylenol per [facility], oxycodone prn pain Skin/Wound/Dressing Care Report to your healthcare provider any signs of infection, such as:: chills, fever, increased pain, unusual drainage and unusual redness Dressing: keep clean and dry Visit Report/Discharge Packet Instructions: DI for Knee Replacement, DI for Prescription Opioid Use Stand Alone Forms: Surgery Discharge Visit Report Forms: Patient Portal/API, Stroke Signs & Symptoms Discharge Data Primary Care Provider: Vinayak Albert Discharges patient from system. Discharge Date/Time: 11/22/19 18:40 Quality VTE Deep Vein Thrombosis/Pulmonary Embolism Present on Admission: No
== END 2019-11-22 18:40 | disposition home or self-care (01) ==
LOC: AC 17:08 → OR 11-24 07:30
PROVIDERS: PCP Family Medicine; Visit Provider Orthopaedic Surgery
PROC: 0SRC0JZ Replacement of Right Knee Joint with Synthetic Substitute, Open Approach (ICD-10-PCS; CPT 27447; principal; 2019-11-22 09:45)
DX: M17.11 Unilateral primary osteoarthritis, right knee (principal); M21.061 Valgus deformity, not elsewhere classified, right knee; E78.5 Hyperlipidemia, unspecified
CPT/HCPCS: 27447; 64450; 73560; 97116; 97161; C1776; C9290; J0690; J2250; J2704; J3010

== ENCOUNTER 2019-12-11 08:54 | Emergency (ER) | payer MEDICARE, OTHER, SELFPAY ==
[2019-11-22 12:05] VITALS: BMI 19.3
--- NOTE | 2019-12-11 08:58 | ED_ITS ---
HPI - General Adult General Chief complaint: Dizziness Stated complaint: Dizziness Time Seen by Provider: 12/11/19 08:56 Source: patient Mode of arrival: EMS Limitations: no limitations History of Present Illness HPI narrative: Patient is an 84-year-old male here for evaluation of lightheadedness this morning. Patient states that yesterday he had a couple episodes of diarrhea. He did think that they were darker in color. He has been taking Motrin and ibuprofen for knee issues. He recently started a Motrin gel caps. No vomiting. No abdominal pain. States he woke up this morning and became somewhat lightheaded. He did not fall. He laid down on the ground. They called 911. Was given fluids by EMS in route to the ER. Patient states he feels somewhat better after the fluids. Related Data Home Medications Medication Instructions Recorded Confirmed aspirin 162 mg PO DAILY #0 01/26/12 12/11/19 cholecalciferol (vitamin D3) 2,000 iu PO DAILY #0 01/26/12 12/11/19 [Vitamin D3] multivitamin 1 tab PO DAILY #0 01/26/12 12/11/19 fluorouracil [Efudex] 1 ramon TOPICAL QDAY PRN 11/09/18 12/11/19 ibuprofen 600 mg PO Q6HP PRN 11/21/19 12/11/19 coenzyme Q10 [Co Q-10] 100 mg PO QPM 11/22/19 12/11/19 acetaminophen 325 mg PO PRN PRN 12/11/19 12/11/19 rosuvastatin [Crestor] 5 mg PO QPM 12/11/19 12/11/19 tamsulosin [Flomax] 0.4 mg PO DAILY 12/11/19 12/11/19 Previous Rx's Medication Instructions Recorded nitroglycerin 0.4 mg sublingual 0.4 mg SUBLINGUAL SEE INSTRUCTIONS 08/01/19 tablet #30 tab esomeprazole magnesium [Nexium] 40 mg PO DAILY #30 cap 12/11/19 Allergies Allergy/AdvReac Type Severity Reaction Status Date / Time BLUE CHEESE Allergy Mild Throat Uncoded 11/21/19 09:15 tightness GORGONZOLA Allergy Mild Throat Uncoded 11/21/19 09:15 tightness sour cream Allergy Mild Throat Uncoded 11/21/19 09:15 tightness Review of Systems Constitutional Constitutional: Denies fever(s) Cardiovascular Cardiovascular: Denies chest pain and Denies dyspnea Respiratory Respiratory: Denies dyspnea Gastrointestinal Gastrointestinal: Denies abdominal pain, Reports diarrhea and Denies vomiting Genitourinary Genitourinary: Denies difficulty urinating Musculoskeletal Musculoskeletal: Denies myalgias and Denies arthralgias Integumentary/Breasts Skin/Breast: Denies rash Neurologic Neurologic: Denies behavioral changes Psychiatric Psychiatric: Denies behavioral changes Hematologic/Lymphatic Hematologic/Lymphatic: Denies easy bleeding and Denies easy bruising Patient History Medical History Benign positional vertigo (Acute ~03/2019) Bilateral primary osteoarthritis of knee (Acute) Cataract fragments in both eyes following surgery (Acute) Chicken pox (Resolved ~1944) Degenerative joint disease (DJD) of lumbar spine (Chronic) Diverticular disease (Chronic ~2000) Foot pain (Chronic ~2013) GERD (gastroesophageal reflux disease) (Chronic) H/O coronary angiogram (Acute) Hearing loss (Chronic ~1967) Hyperlipidemia (Chronic) Hypertension (Chronic) Measles (Resolved ~1941) Mumps (Resolved ~1971) PAC (premature atrial contraction) (Acute) Pruritic rash (Chronic) Rubella (Resolved ~1939) Shoulder pain (Chronic ~2012) Tinea pedis (Chronic ~1965) Surgical History Anesthesia (Resolved) Fractures (Resolved) History of arthroscopy (Resolved) Peroneal tendon injury (Resolved ~1956) Status post hernia repair (~1997) Status post hernia repair (~2002) Social History marital status: household members: spouse Smoking Status: Never smoker alcohol intake: never substance use type: does not use Smoking Status: Never smoker Substance Use Type: does not use Exam Initial Vital Signs Initial Vital Signs: Vital Signs Temperature 98.2 F 12/11/19 09:01 Pulse Rate 72 12/11/19 09:01 Respiratory Rate 18 12/11/19 09:01 Blood Pressure 127/60 12/11/19 09:01 Pulse Oximetry 100 12/11/19 09:01 Const General: cooperative and comfortable Limitations: mental status not altered HENMT Head: normal to inspection and normocephalic Resp Effort & Inspection: normal respiratory effort Auscultation: clear to auscultation bilaterally Cardio Rate: regular rate Rhythm: regular rhythm GI Inspection: non-distended Palpation: soft, No firm and No tender Skin Lesions: no lesions Rashes: no rashes Neuro General: alert, awake and oriented x3 Cognition: normal cognition Speech: speech normal Extrem General: normal to inspection and capillary refill normal Psych Appearance: grossly normal and well kempt Scores GCS [place] coma scale eye opening: Spontaneous [place] coma scale verbal response: Orientated [place] coma scale motor response: Obey commands [place] coma scale total score: 15 Course Orders Ordered: ED Orders 12/11/19 08:58 EKG-12 Lead Stat 12/11/19 10:15 Basic Metabolic Panel Stat Complete Blood Count AUTO DIFF Stat Hepatic (Liver) Panel Stat Lipase Stat Type and Screen Stat 12/11/19 12:00 Hemoglobin and Hematocrit Stat Discontinued Medications Sodium Chloride (Normal Saline 0.9%) 1,000 mls @ 1,000 mls/hr IV BOLUS ONE Stop: 12/11/19 09:56 Last Infusion: 12/11/19 12:51 Dose: 0 mls/hr Documented by: Admin: 12/11/19 09:00 Dose: 1,000 mls/hr Documented by: AKI Pantoprazole Sodium (Protonix) 40 mg IV NOW ONE Stop: 12/11/19 12:37 Last Admin: 12/11/19 12:50 Dose: 40 mg Documented by: AKI Vital Signs Vital signs: Vital Signs - 8 hr 12/11/19 09:01 12/11/19 09:30 12/11/19 10:50 Temperature 98.2 F Pulse Rate 72 67 Pulse Rate [Orthostatic Lying] 73 Pulse Rate [Orthostatic Sitting] 79 Pulse Rate [Orthostatic Standing] 80 Respiratory Rate 18 15 Blood Pressure 127/60 Blood Pressure [Left Arm] 104/51 L Blood Pressure [Orthostatic Lying] 112/54 L Blood Pressure [Orthostatic Sitting] 113/54 L Blood Pressure [Orthostatic Standing] 113/54 L Pulse Oximetry 100 96 12/11/19 10:51 12/11/19 11:30 12/11/19 12:00 Temperature Pulse Rate 73 76 80 Pulse Rate [Orthostatic Lying] Pulse Rate [Orthostatic Sitting] Pulse Rate [Orthostatic Standing] Respiratory Rate 21 17 27 H Blood Pressure Blood Pressure [Left Arm] 112/54 L 112/56 L 120/56 L Blood Pressure [Orthostatic Lying] Blood Pressure [Orthostatic Sitting] Blood Pressure [Orthostatic Standing] Pulse Oximetry 94 95 95 Medical Decision Making Medical Records Medical records reviewed: Yes I reviewed the patient's medical records. Lab Data Lab results reviewed: Yes I reviewed the patient's lab results. Result diagrams: 12/11/19 12:00 12/11/19 10:15 Labs: Lab Results 12/11/19 12/11/19 12/11/19 Range/Units 10:15 10:15 10:15 WBC 11.6 H (4.5-11.0) X10^3/uL RBC 2.47 L (4.5-5.9) X10^6/uL Hgb 8.3 L (13.5-17.5) g/dL Hct 25.0 L (41-53) % MCV 101.3 H (80-100) fL MCH 33.7 (26-34) PG MCHC 33.2 (30-36) % RDW 13.7 (11.6-14.8) % Plt Count 279 (150-400) X10^3/uL Neut % (Auto) 87.7 H (50-75) % Lymph % (Auto) 5.3 L (25-40) % [place] % (Auto) 6.4 (3-14) % Eos % (Auto) 0.5 L (2-4) % Baso % (Auto) 0.1 (0-2) % Neut # (Auto) 58706 H (6552-8459) /uL Lymph # (Auto) 600 L (8615-7192) /uL [place] # (Auto) 700 (0-900) /uL Eos # (Auto) 100 (0-450) /uL Baso # (Auto) 0 (0-100) /uL Sodium 141 (137-145) mmol/L Potassium 4.6 (3.4-5.1) mmol/L Chloride 111 H (98-107) mmol/L Carbon Dioxide 26 (22-32) mmol/L BUN 38 H (9-20) mg/dL Creatinine 0.70 (0.66-1.25) mg/dL Estimated GFR > 60.0 (>60) mL/min BUN/Creatinine Ratio 54.3 H (6-22) Glucose 108 (80-110) mg/dL Calcium 7.9 L (8.4-10.2) mg/dL Total Bilirubin 0.3 (0.2-1.3) mg/dL Conjugated Bilirubin 0.0 (0.0-0.3) md/dL Unconjugated Bilirubin 0.2 (0.0-1.1) mg/dL AST 30 (17-59) IU/L ALT 23 (<50) IU/L Alkaline Phosphatase 101 (38-126) U/L Total Protein 5.3 L (6.3-8.2) g/dL Albumin 3.0 L (3.5-5.0) g/dL Globulin 2.3 (1.7-4.1) g/dL Albumin/Globulin Ratio 1.3 (1.0-2.8) Lipase 48 (23-300) U/L Blood Type Antibody Screen 12/11/19 12/11/19 Range/Units 10:15 12:00 WBC (4.5-11.0) X10^3/uL RBC (4.5-5.9) X10^6/uL Hgb 8.3 L (13.5-17.5) g/dL Hct 25.3 L (41-53) % MCV (80-100) fL MCH (26-34) PG MCHC (30-36) % RDW (11.6-14.8) % Plt Count (150-400) X10^3/uL Neut % (Auto) (50-75) % Lymph % (Auto) (25-40) % [place] % (Auto) (3-14) % Eos % (Auto) (2-4) % Baso % (Auto) (0-2) % Neut # (Auto) (5712-1597) /uL Lymph # (Auto) (3189-2370) /uL [place] # (Auto) (0-900) /uL Eos # (Auto) (0-450) /uL Baso # (Auto) (0-100) /uL Sodium (137-145) mmol/L Potassium (3.4-5.1) mmol/L Chloride (98-107) mmol/L Carbon Dioxide (22-32) mmol/L BUN (9-20) mg/dL Creatinine (0.66-1.25) mg/dL Estimated GFR (>60) mL/min BUN/Creatinine Ratio (6-22) Glucose (80-110) mg/dL Calcium (8.4-10.2) mg/dL Total Bilirubin (0.2-1.3) mg/dL Conjugated Bilirubin (0.0-0.3) md/dL Unconjugated Bilirubin (0.0-1.1) mg/dL AST (17-59) IU/L ALT (<50) IU/L Alkaline Phosphatase (38-126) U/L Total Protein (6.3-8.2) g/dL Albumin (3.5-5.0) g/dL Globulin (1.7-4.1) g/dL Albumin/Globulin Ratio (1.0-2.8) Lipase (23-300) U/L Blood Type O Negative Antibody Screen Negative ECG Data Attestation: I personally reviewed and interpreted this ECG as follows: Prior ECG tracings: not available for review Interpretation: Sinus rhythm Ventricular rate is 74 Normal axis Normal QRS Normal QTC Nonspecific ST T wave changes MDM Narrative Medical decision making narrative: Patient states he feels much better after the fluids. Was able to ambulate to the bathroom here without any problems. Was not hypotensive. Was not tachycardic. Was not hypoxic. Was alert oriented x3. Did have a bloody bowel movement here in the ER. His initial H&H does show an anemia. A repeat 2 hours later after fluids and after another bony bowel movement did not show any drop. I do not feel given his clinical presentation that he requires an emergent transfusion. I do not feel that surgery would emergently scoped the individual. I do suspect that his symptoms this morning were related to the anemia and also a degree of dehydration given the diarrhea that he has been having. I do suspect that the anemia secondary to GI bleed most likely secondary to his use of aspirin and anti-inflammatories. I did disc uss the case with Dr. Albert who is the patient's primary provider. The plan will be is to send him home. Will have him stop the aspirin. Stop the anti- inflammatories. Will start him on a PPI. He was given Protonix here in the ER. He was also given strict return precautions if his symptoms worsen or return that he should come back to the emergency department. 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 We were able to schedule him for follow-up tomorrow morning at 0830 with his primary provider. Patient and his who is at bedside expressed understanding and agreement. Discharge Plan Departure Patient Disposition: Home Clinical Impression: Dehydration Anemia Qualifiers: Anemia type: unspecified type Qualified Code(s): D64.9 - Anemia, unspecified GI bleed Qualifiers: GI bleed type/associated pathology: unspecified gastrointestinal hemorrhage type Qualified Code(s): K92.2 - Gastrointestinal hemorrhage, unspecified Instructions: Gastrointestinal Bleeding Activity Restrictions/Additional Instructions: I recommend that you stop the aspirin and the Motrin/ibuprofen like we discussed. Start the omeprazole that you were given a prescription for. This prescription was transmitted electronically to [facility]. You have an appointment tomorrow morning at [address] Albert with a follow-up. If your symptoms worsen or you develop any new symptoms please return to the emergency department immediately. Prescriptions: New esomeprazole magnesium [Nexium] 40 mg capsule,delayed release(DR/EC) 40 mg PO DAILY Qty: 30 RF: 0 No Action aspirin 81 mg Tablet,Delayed Release (Dr/Ec) 162 mg PO DAILY Qty: 0 RF: 0 multivitamin Tablet 1 tab PO DAILY Qty: 0 RF: 0 cholecalciferol (vitamin D3) [Vitamin D3] 2,000 UNIT capsule 2,000 iu PO DAILY Qty: 0 RF: 0 nitroglycerin [Nitrostat] 0.4 mg tablet, sublingual 0.4 mg Sublingual SEE INSTRUCTIONS Qty: 30 RF: 3 fluorouracil [Efudex] 5 % cream 1 ramon Topical QDAY PRN (Reason: skin cancer ) RF: 0 ibuprofen 600 MG tablet 600 mg PO Q6HP PRN (Reason: Pain) RF: 0 coenzyme Q10 [Co Q-10] 100 mg Capsule 100 mg PO QPM RF: 0 rosuvastatin [Crestor] 5 mg tablet 5 mg PO QPM RF: 0 acetaminophen 325 mg Tablet 325 mg PO PRN PRN (Reason: pain) RF: 0 tamsulosin [Flomax] 0.4 mg capsule 0.4 mg PO DAILY RF: 0 Referrals: Vinayak Albert MD [Primary Care Provider] -
[2019-12-11] MEDS: SODIUM CHLORIDE 0.9% 1,000 ML 1000 ML IV (09:00)
[2019-12-11 09:01] VITALS: BP 127/60; PULSE 72; RESP 18; TEMP 36.8; O2SAT 100
[2019-12-11 09:30] VITALS: BP 104/51; PULSE 67; RESP 15; O2SAT 96
[2019-12-11 10:25] LABS: Add Manual Diff / Slide Review NO; Basophils Absolute Auto 0 /uL (0-100); Basophils Percent Auto 0.1 % (0-2); Eosinophils Absolute Auto 100 /uL (0-450); Eosinophils Percent Auto 0.5 % (2-4); Hemoglobin 8.3 g/dL (13.5-17.5); Lymphocytes Absolute Auto 600 /uL (1100-4500); Lymphocytes Percent Auto 5.3 % (25-40); Mean Corpuscular HGB Conc 33.2 % (30-36); Mean Corpuscular Hemoglobin 33.7 PG (26-34); Mean Corpuscular Volume 101.3 fL (80-100); Monocytes Absolute Auto 700 /uL (0-900); Monocytes Percent Auto 6.4 % (3-14); Neutrophils Absolute Auto 10100 /uL (1500-7000); Neutrophils Percent Auto 87.7 % (50-75); Platelet Count 279 X10^3/uL (150-400); Red Blood Cell Count 2.47 X10^6/uL (4.5-5.9); Red Cell Distribution Width 13.7 % (11.6-14.8); White Blood Cell Count 11.6 X10^3/uL (4.5-11.0)
[2019-12-11 10:33] LABS: BUN Creatinine Ratio 54.3 (6-22); Blood Urea Nitrogen 38 mg/dL (9-20); Calcium 7.9 mg/dL (8.4-10.2); Carbon Dioxide 26 mmol/L (22-32); Chloride 111 mmol/L (98-107); Estimated Glomerular Filt Rate > 60.0 mL/min (>60); Glucose 108 mg/dL (80-110); HEMOLYSIS < 15 (0-50); Potassium 4.6 mmol/L (3.4-5.1); Sodium 141 mmol/L (137-145)
[2019-12-11 10:50] VITALS: BP 112/54; BP 113/54; PULSE 73; PULSE 79; PULSE 80
[2019-12-11 10:51] VITALS: BP 112/54; PULSE 73; RESP 21; O2SAT 94
--- NOTE | 2019-12-11 10:55 | PC.NURSE ---
holding the NS infusion by dr castillo until results of orthostatic bp is done.
[2019-12-11 11:30] VITALS: BP 112/56; PULSE 76; RESP 17; O2SAT 95
[2019-12-11 11:34] LABS: Alanine Aminotransferase 23 IU/L (<50); Albumin Globulin Ratio 1.3 (1.0-2.8); Alkaline Phosphatase 101 U/L (38-126); Aspartate Aminotransferase 30 IU/L (17-59); Bilirubin Total 0.3 mg/dL (0.2-1.3); Bilirubin Unconjugated 0.2 mg/dL (0.0-1.1); Globulin 2.3 g/dL (1.7-4.1); HEMOLYSIS < 15 (0-50); Lipase 48 U/L (23-300); Total Protein 5.3 g/dL (6.3-8.2)
[2019-12-11 12:00] VITALS: BP 120/56; PULSE 80; RESP 27; O2SAT 95
[2019-12-11 12:11] LABS: Hematocrit 25.3 % (41-53); Hemoglobin 8.3 g/dL (13.5-17.5)
[2019-12-11] MEDS: PANTOPRAZOLE 40 MG VIAL IV (12:50)
== END 2019-12-11 12:56 | disposition home or self-care (01) ==
PROVIDERS: Emergency Provider Emergency Medicine; PCP Family Medicine
DX: E86.0 Dehydration (principal); D64.9 Anemia, unspecified; K92.2 Gastrointestinal hemorrhage, unspecified
CPT/HCPCS: 36415; 80048; 80076; 83690; 85014; 85018; 85025; 86850; 86900; 86901; 93005; 96361; 96374; 99284; C9113

== ENCOUNTER → 2019-12-14 09:09 | Outpatient (CLI) | payer MEDICARE, OTHER, SELFPAY ==
[2019-11-22 12:05] VITALS: BMI 19.3
[2019-12-14 11:06] LABS: Hematocrit 25.1 % (41-53); Hemoglobin 8.2 g/dL (13.5-17.5)
== END ==
PROVIDERS: PCP Family Medicine; Referring Provider Family Medicine; Visit Provider Family Medicine
DX: D64.9 Anemia, unspecified (principal)
CPT/HCPCS: 36415; 85014; 85018

== ENCOUNTER → 2019-12-25 08:32 | Outpatient (CLI) | payer MEDICARE, OTHER, SELFPAY ==
[2019-11-22 12:05] VITALS: BMI 19.3
[2019-12-25 09:36] LABS: Hemoglobin 10.2 g/dL (13.5-17.5)
== END ==
PROVIDERS: PCP Family Medicine; Referring Provider Family Medicine; Visit Provider Family Medicine
DX: D64.9 Anemia, unspecified (principal); K92.2 Gastrointestinal hemorrhage, unspecified
CPT/HCPCS: 36415; 85014; 85018

== ENCOUNTER → 2020-02-22 10:53 | Outpatient (CLI) | payer MEDICARE, OTHER, SELFPAY ==
[2019-11-22 12:05] VITALS: BMI 19.3
--- NOTE | 2020-02-22 10:56 | DI.RAD.S_ITS ---
PROCEDURE: XR HAND RT MIN 3V INDICATIONS: Trauma TECHNIQUE: 3 views of the hand(s) acquired. COMPARISON: [facility], , WRIST MINIMUM 3 VIEWS RIGHT, 10/15/2012, 18:21. [facility], , WRIST MINIMUM 3 VIEWS RIGHT, 05/03/2016, 11:57. FINDINGS: Bones: Old distal radial and ulnar metaphyseal fractures with deformity. Severe osteoarthritic changes at the radiocarpal joint, triscaphe joint and first carpal and carpal joint. Carpal bones are normally aligned. No suspicious bony lesions. Soft tissues: No suspicious soft tissue calcifications. Soft tissue swelling. IMPRESSION: 1. Old fracture deformity of the distal radial and ulnar metaphysis. 2. Osteoarthritic changes. Dictated by: Sayra Sosa M.D. on 02/22/2020 at 13:25 Approved by: Sayra Sosa M.D. on 02/22/2020 at 13:32
== END ==
PROVIDERS: PCP Family Medicine; Referring Provider Family Medicine; Visit Provider Family Medicine
DX: M79.641 Pain in right hand (principal); M21.831 Other specified acquired deformities of right forearm; M79.89 Other specified soft tissue disorders
CPT/HCPCS: 73130

== ENCOUNTER → 2020-02-29 07:40 | Outpatient (CLI) | payer MEDICARE, OTHER, SELFPAY ==
[2019-11-22 12:05] VITALS: BMI 19.3
[2020-02-29 08:22] LABS: Hematocrit 40.3 % (41-53); Hemoglobin 12.9 g/dL (13.5-17.5)
== END ==
PROVIDERS: PCP Family Medicine; Referring Provider Family Medicine; Visit Provider Family Medicine
DX: D64.9 Anemia, unspecified (principal)
CPT/HCPCS: 36415; 85014; 85018

== ENCOUNTER → 2020-03-07 09:53 | Outpatient (CLI) | payer MEDICARE, OTHER, SELFPAY ==
[2019-11-22 12:05] VITALS: BMI 19.3
--- NOTE | 2020-03-07 09:55 | DI.RAD.S_ITS ---
PROCEDURE: XR HIP W PEL IF DONE RT 2V INDICATIONS: Pain. TECHNIQUE: AP pelvis with lateral view(s) of the right hip(s). COMPARISON: [facility], , PELVIS W UNILATERAL HIP LEFT, 10/15/2012, 18:31. FINDINGS: Bones: No fractures or dislocations. Pelvic ring appears intact. No suspicious bony lesions. Lower lumbar spondylosis and facet arthropathy. Mild to moderate bilateral hip degeneration Soft tissues: The visualized bowel gas pattern is normal. No suspicious soft tissue calcifications. Presumed pelvic phleboliths. 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 No interval progression since 10/15/12 Dictated by: Mtai Mckeon M.D. on 03/07/2020 at 10:22 Approved by: Mati Mckeon M.D. on 03/07/2020 at 10:25
== END ==
PROVIDERS: PCP Family Medicine; Referring Provider Family Medicine; Visit Provider Family Medicine
DX: M25.551 Pain in right hip (principal); M16.0 Bilateral primary osteoarthritis of hip; M47.816 Spondylosis without myelopathy or radiculopathy, lumbar region
CPT/HCPCS: 73502

== ENCOUNTER → 2020-06-19 08:12 | Outpatient (CLI) | payer MEDICARE, OTHER, SELFPAY ==
[2019-11-22 12:05] VITALS: BMI 19.3
[2020-06-19 09:01] LABS: Add Manual Diff / Slide Review NO; Basophils Absolute Auto 0 /uL (0-100); Basophils Percent Auto 0.3 % (0-2); Eosinophils Absolute Auto 100 /uL (0-450); Hemoglobin 14.5 g/dL (13.5-17.5); Lymphocytes Absolute Auto 900 /uL (1100-4500); Lymphocytes Percent Auto 19.3 % (25-40); Mean Corpuscular HGB Conc 33.7 % (30-36); Mean Corpuscular Hemoglobin 31.9 PG (26-34); Mean Corpuscular Volume 94.6 fL (80-100); Monocytes Absolute Auto 500 /uL (0-900); Monocytes Percent Auto 9.8 % (3-14); Neutrophils Absolute Auto 3200 /uL (1500-7000); Neutrophils Percent Auto 67.6 % (50-75); Platelet Count 177 X10^3/uL (150-400); Red Blood Cell Count 4.54 X10^6/uL (4.5-5.9); White Blood Cell Count 4.7 X10^3/uL (4.5-11.0)
[2020-06-19 09:26] LABS: Carbon Dioxide 27 mmol/L (22-32); Chloride 107 mmol/L (98-107); HEMOLYSIS < 15 (0-50); Potassium 4.2 mmol/L (3.4-5.1); Sodium 140 mmol/L (137-145)
== END ==
PROVIDERS: PCP Family Medicine; Referring Provider Orthopaedic Surgery; Visit Provider Orthopaedic Surgery
DX: M17.0 Bilateral primary osteoarthritis of knee (principal); Z01.818 Encounter for other preprocedural examination
CPT/HCPCS: 36415; 80051; 85025

== ENCOUNTER → 2020-06-21 11:08 | Outpatient (CLI) | payer MEDICARE, OTHER, SELFPAY ==
[2019-11-22 12:05] VITALS: BMI 19.3
[2020-06-22 08:50] LABS: COVID19 Sendout Not Detected (Not Detect)
== END ==
PROVIDERS: PCP Family Medicine; Visit Provider Physician Assistant
DX: Z11.59 Encounter for screening for other viral diseases (principal)
CPT/HCPCS: 87635

== ENCOUNTER 2020-06-24 07:45 | Day surgery (SDC) | payer MEDICARE, OTHER, SELFPAY ==
[2019-11-22 12:05] VITALS: BMI 19.3
[2020-06-19 10:58] VITALS: BMI 24.0
[2020-06-24] VITALS (12 sets, daily range): BP systolic 98–147; BP diastolic 53–76; PULSE 60–79; RESP 14–62; TEMP 36–36.4; O2SAT 92–97; BMI 23.7
--- NOTE | 2020-06-24 09:12 | PM.PREOP ---
Pre-operative Note COVID-19 COVID-19 status: Negative Result date/Date tested (Pos, Neg/Pending): 06/21/20 Interval Note History & Physical reviewed/Exam performed by Physician: Yes Changes to H&P: No
--- NOTE | 2020-06-24 09:12 | PM.OP.1 ---
Operative Date/Time/Diagnoses Date of procedure: 06/24/20 Time of procedure: 11:25 Pre-op diagnosis: Left knee osteoarthritis Post-op diagnosis: same Procedure & Clinicians Procedure: Left total knee arthroplasty Same procedure as scheduled: Yes Indications: The patient presents today for total knee arthroplasty after failure of conservative treatment. The nature of the procedure including the risks and benefits, alternatives, postoperative course and expected outcome were discussed and all questions answered. Consent was obtained. Operative site confirmed and marked. Surgeon: Moustapha Leon Loader Operator/Ground Leader: Jimenez Adams Anesthesia Type: General, Spinal, Peripheral nerve block and Local Operative Notes Closure Type: primary Specimen(s): none sent Prosthetic devices, grafts, tissues, transplants, or devices: [employer]la BCS: 6 femoral component, 6 tibial component, 10 mm BCS polyethylene tray and 35 x 9 mm round patella Applied: implant(s) Estimated Blood Loss (mL): 5 Blood products transfused: none Tourniquet time (min): 49 Procedure in detail: The patient was taken to the operative suite and placed under anesthesia. The patient was given prophylactic antibiotics prior to surgery. The patient was also given tranexamic acid, 1 g, just prior to surgery for postoperative hemostasis. The lateral knee was prepped and the joint injected with 20 mL of 1% Lidocaine with epinephrine. The knee was then prepped and draped in usual sterile fashion. The leg was exsanguinated with an Esmarch dressing and the tourniquet raised to 250 torr. A 15 cm anterior incision was made. Next a medial trivector arthrotomy was made. The extensor mechanism was marked to ensure accurate repair. Initial exposing dissection was carried out medially and laterally. The knee was then flexed and the intramedullary femoral guide darien placed. The distal femoral cut was made in 6? of valgus at the +0 position. The femoral size was measured and the appropriate cutting block was then placed and the anterior, posterior and chamfer cuts made. The intramedullary tibial alignment darien was then placed. The guide was set to remove approximately 9 mm from the less affected medial side. The proximal tibial cut was then made with an oscillating saw. All meniscus and bony debris was then removed. Posterior femoral osteophytes removed with a curved osteotome. Flexion extension gaps were checked. There is just slight lateral tightness after cuts in standard releases. This was corrected using a 15 blade with a pie crust technique. The soft tissues were then injected with a combination of 20 mL of half percent Marcaine with epinephrine and 20 mL of Exparel. The trial components were then placed. The knee was then extended and the patellar thickness was measured and a cut made removing approximately 9 mm of bone. The patella was then sized and drilled. Some excess lateral bone was excised and the patellofemoral ligament released. The knee went into full extension and flexion beyond 130?. There was good medial-lateral balance throughout motion. The knee was well balanced mediolaterally. There is slight increased laxity in flexion than extension. Patellar tracking was excellent. The trial components were removed and the knee was cleansed with Pulsavac irrigation and dried. The final components were cemented with high viscosity vacuum mixed bone cement with antibiotics. The joint was filled with a dilute Betadine solution. The knee was held in extension and the patellar clamped until the cement was adequately cured. The knee was then irrigated. The extensor mechanism was closed with 5 interrupted #1 Vicryl sutures and a running Quill suture at approximately 90 degrees of flexion. The joint was then injected with a combination of 1 g of tranexamic acid and 20 mL of quarter percent Marcaine with epinephrine. The subcutaneous tissue was closed with 2 0 Vicryl. The skin was closed with absorbable subcuticular sutures and surgical adhesive. An Aquacel dressing and Bravo wrap were then applied. The patient tolerated the procedure well and was returned to recovery room in good condition. Complications: none Post-operative Condition: stable Disposition: same day surgery [facility].
--- NOTE | 2020-06-24 09:44 | DI.RAD.S_ITS ---
PROCEDURE: XR KNEE LT 1TO2V INDICATIONS: tka TECHNIQUE: 2 view(s) of the knee acquired. COMPARISON: [facility], CR, XR KNEE RT 1TO2V, 11/22/2019, 11:00. FINDINGS: Bones: Patient is status post knee joint arthroplasty. Hardware components are in expected positions. Visualized bony structures are intact. Soft tissues: Overlying postoperative changes are noted. IMPRESSION: Expected postoperative appearance. Dictated by: Mati Mckeon M.D. on 06/24/2020 at 15:51 Approved by: Mati Mckeon M.D. on 06/24/2020 at 15:52
[2020-06-24] MEDS: LACTATED RINGERS 1,000 ML 42 ML IV (09:51)
[2020-06-24] MEDS: CEFAZOLIN 2 GM/100 ML FROZ.PIGGY IV (10:00)
[2020-06-24] MEDS: LIDOCAINE 1% W/EPI 20 ML INJ (10:45)
[2020-06-24] MEDS: BUPIVACAINE 0.5% W/ EPI (PF) 10 ML, TRANEXAMIC ACID 1,000 MG, SODIUM CHLORIDE 0.9% 20 ML INJ ×2 (10:48→10:49)
--- NOTE | 2020-06-24 12:17 | SUR.PHASEI ---
Report given to Lyudmila
[2020-06-24] MEDS: LACTATED RINGERS 1,000 ML 100 ML IV (12:52)
[2020-06-24] MEDS: OXYCODONE IR 5 MG TABLET PO (14:00)
[2020-06-24] MEDS: ACETAMINOPHEN 325 MG TABLET 650 MG PO (14:00)
--- NOTE | 2020-06-24 14:05 | PM.DS.1 ---
History of Present Illness History of Present Illness Date Patient Seen: 06/24/20 Time Patient Seen: 14:06 Chief complaint: Left Total Knee Arthroplasty *OPB* Narrative: Pain mild. No fever chills. No nausea vomiting. Prior history right total knee arthroplasty. Discharge Providers Provider Discharge Date: 06/24/20 Primary care physician: Vinayak Albert MD Consults: 06/24/20 09:43 Consult to Anesthesiology Routine Comment: Consulting Provider: Anesthesiologist Reason for consultation: Regional block for post operative pain control 06/24/20 12:20 Consult to Discharge Planning Routine Comment: Consult to Physical Therapy Evaluate & Treat Comment: Needs STAT consult for DC home today Physician Instructions: postop TKA protocol Consult to Respiratory Therapy Evaluate & Treat Comment: Physician Instructions: Evaluate and treat Discharge provider: Jimenez Adams PA-C Summary Hospital Course Discharge Diagnosis: Left knee osteoarthritis Hospital Course: Procedure & Clinicians Procedure: Left total knee arthroplasty Same procedure as scheduled: Yes Indications: The patient presents today for total knee arthroplasty after failure of conservative treatment. The nature of the procedure including the risks and benefits, alternatives, postoperative course and expected outcome were discussed and all questions answered. Consent was obtained. Operative site confirmed and marked. Surgeon: Moustapha Leon Supervisor [employer]: Jimenez Adams Anesthesia Type: General, Spinal, Peripheral nerve block and Local Operative Notes Closure Type: primary Specimen(s): none sent Prosthetic devices, grafts, tissues, transplants, or devices: [employer]la BCS: 6 femoral component, 6 tibial component, 10 mm BCS polyethylene tray and 35 x 9 mm round patella Applied: implant(s) Estimated Blood Loss (mL): 5 Blood products transfused: none Tourniquet time (min): 49 Patient admitted to the hospital for left total knee arthroplasty. Patient consented to the same. Patient taken operating room this morning underwent left total knee arthroplasty. Patient back in his room recovering well as in stable condition. Pain is mild. No nausea vomiting. Patient wishes to go home today if able to do so. Physical therapy will eval and treat and discharge home today if stable and safe to do so. His is home available to assist him. Exam Vital Signs (past 8 hours): - 06/24/20 08:14 06/24/20 11:40 06/24/20 11:45 Temperature 96.8 F L 97.1 F L Pulse Rate 71 79 78 Respiratory Rate 16 20 14 Blood Pressure 147/73 H 98/57 L 104/54 L Pulse Oximetry 96 95 96 06/24/20 11:50 06/24/20 11:59 06/24/20 12:04 Temperature Pulse Rate 79 78 74 Respiratory Rate 28 H 18 17 Blood Pressure 107/58 L 114/53 L 108/57 L Pulse Oximetry 96 95 95 06/24/20 12:51 Temperature Pulse Rate 70 Respiratory Rate 16 Blood Pressure Pulse Oximetry 97 Oxygen Delivery Method Room Air Oxygen Flow Rate 0 Narrative Exam Narrative: Pleasant 84-year-old male resting comfortably in bed in no apparent distress. Left knee dressing is clean, dry and intact. Sensation grossly intact to light touch bilateral lower extremities. Motor functions intact bilateral lower extremities. Both legs are warm and dry. Discharge Assessment & Plan Assessment and Plan Assessment: Patient stable status post left total knee arthroplasty. Routine postop protocol. Discharge home later this afternoon if cleared by physical therapy. Discharge Plan Discharge Plan Patient Disposition: Home Discharge comment: DC home today if cleared by PT Discharge Med Rec/Prescriptions Prescriptions: Continued multivitamin Tablet 1 tab PO DAILY Qty: 0 RF: 0 cholecalciferol (vitamin D3) [Vitamin D3] 2,000 UNIT capsule 2,000 iu PO DAILY Qty: 0 RF: 0 nitroglycerin [Nitrostat] 0.4 mg tablet, sublingual 0.4 mg Sublingual SEE INSTRUCTIONS Qty: 30 RF: 3 cyclobenzaprine 10 mg tablet 10 mg PO TIDP PRN (Reason: muscle spasm) Qty: 60 RF: 0 acetaminophen 325 mg Tablet 325 mg PO PRN PRN (Reason: pain) RF: 0 tamsulosin [Flomax] 0.4 mg capsule 0.4 mg PO DAILY RF: 0 Konsyl (sugar) 3.4 gram Powder In Packet 3.4 g PO DAILY RF: 0 Follow up/Referrals: Moustapha Leon MD [Physician] - 2 Weeks Vinayak Albert MD [Primary Care Provider] - Discharge Orders: Discharge (Order); Ordered 06/24/20 Ordered By: Moustapha Leon Provider Discharge Instructions Diet: Regular Activity: Progress weight-bearing and activity as tolerated. Daily knee range of motion exercises. Cold/Heat Therapy: May ice the knee for 20 minutes at a time for pain as needed. Other treatments: Use ibuprofen 400 mg and Tylenol 500 mg every 4 hours along with prescribed pain medication. Skin/Wound/Dressing Care Report to your healthcare provider any signs of infection, such as:: chills, fever, increased pain, unusual drainage and unusual redness Dressing: May leave dressing in place for until follow-up. May shower over the dressing. Visit Report/Discharge Packet Instructions: DI for Knee Replacement Stand Alone Forms: Surgery Discharge Discharge Data Primary Care Provider: Vinayak Albert Attending Provider: Moustapha Leon
--- NOTE | 2020-06-24 15:40 | PC.NURSE ---
Post-op: Late entry Arrived to room 202 at 1235 awake and alert, oriented X3. VSS. Placed on 1L O2 for de-sat when dozing. Dressing/myra wrap to L knee C/D/I. Circulation WNL, PP+, feet pink/warm, cap refill <2 sec. Able to move BLE's, wiggle toes, reports numbness/tingling continues to resolve. Medicated with scheduled Tylenol and PRN Oxycodone per e-mar, ice pack in place to L knee. Tolerating PO's without N/V. IVF per orders, site R forearm WNL. SCD's to BLE's. Oriented to room and call light, encouraged to make needs known. Light and belongings within reach, bed alarm on. at bedside and attentive.
--- NOTE | 2020-06-24 15:54 | PT.IIE ---
Current Diagnoses Unilateral primary osteoarthritis, left knee (06/24/20) Surgery Performed Operation Date: 06/24/20 09:45 Actual Procedures p Total Knee Arthroplasty(Left) - Moustapha Leon MD Surgical History (Last Updated 06/19/20 @ 11:26 by Radha Reilly RN) Anesthesia (Resolved) Fractures (Resolved) History of arthroplasty of right knee (Acute 11/22/19) History of arthroscopy (Resolved) Hx of bilateral cataract extraction (Acute 11/2018) Peroneal tendon injury (Resolved ~1956) Status post hernia repair (~1997) Status post hernia repair (~2002) Medical History (Last Reviewed 12/11/19 @ 09:22 by Dano Alvares DO) Benign positional vertigo (Acute ~03/2019) Bilateral primary osteoarthritis of knee (Acute) Cataract fragments in both eyes following surgery (Acute) Chicken pox (Resolved ~1944) Degenerative joint disease (DJD) of lumbar spine (Chronic) Diverticular disease (Chronic ~2000) Foot pain (Chronic ~2013) GERD (gastroesophageal reflux disease) (Chronic) H/O coronary angiogram (Acute) Hearing loss (Chronic ~1967) Hyperlipidemia (Chronic) Hypertension (Chronic) Measles (Resolved ~1941) Mumps (Resolved ~1971) PAC (premature atrial contraction) (Acute) Pruritic rash (Chronic) Rubella (Resolved ~1939) Shoulder pain (Chronic ~2012) Tinea pedis (Chronic ~1965) Physical Therapy Inpatient Evaluation/Re-Eval M1 PT/OT-IP Prior Functional Status Start: 06/24/20 12:38 Freq: NEEDED Status: Active Protocol: Document 06/24/20 15:39 AW (Rec: 06/24/20 15:54 AW [email or web address]) Medical Review Prior Functional Status Medical History Reviewed Yes Communication WNL Mobility and Gait IND without meaningful limit. Pt was walking [place] [address] at [facility] (2+ miles with changes in elevation) a few weeks ago. Activities of Daily Living and IADL's IND Prior Functional Level (Other details) Pt had R TKA in November 2019. He left the hospital same day. Social History Household Members spouse Living Arrangements House Number of Floors (Floors) Two Floors Number of Stairs To Enter/Railing? 1 platform ADELE with R rail ascending, wide enough to use walker. 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 M2 PT-IP Current Condition Start: 06/24/20 12:38 Freq: NEEDED Status: Active Protocol: Document 06/24/20 15:39 AW (Rec: 06/24/20 15:54 AW [email or web address]) Physical Therapy Current Condition Current Condition Evaluation Date 06/24/20 Treatment Diagnosis R TKA; difficulty in walking Onset Date 06/24/20 Weight Bearing Status Weight Bearing Status Weight Bear as Tolerated M3 PT-IP Subjective Start: 06/24/20 12:38 Freq: NEEDED Status: Active Protocol: Document 06/24/20 15:39 AW (Rec: 06/24/20 15:54 AW [email or web address]) Subjective Physical Therapy Visit Type Type Initial Evaluation Visit Start Time 14:40 Visit Stop Time 15:05 Total Visit Minutes 25 Notes Pt's present throughout evaluation. Number of IMMIGRATION SERVICES OFFICER Visits 0 Physical Therapy Visit Comments Patient Comments I'm feeling good. When can I go? Patient Goals Discharge home as soon as possible. Therapy Pain Assessment Pain When Pain Assessed During Mobility Pain Present Pain Present Pain Reported Location Left Knee Scale Used not quantified Pain Management Techniques Apply Cold,Re-positioning, Timing of Activity with Medications M4 PT-IP Mobility and Gait Start: 06/24/20 12:38 Freq: NEEDED Status: Active Protocol: Document 06/24/20 15:39 AW (Rec: 06/24/20 15:54 AW [email or web address]) PT-Bed Mobility Assessment Supine to Sit Supine to Sit Standby Assistance Scooting Scooting to Edge of Bed Standby Assistance PT-Transfer Assessment Sit to and From Stand Sit to and from Stand Standby Assistance,Contact Guard Assistance,1 Person Assistance,Use of Upper Extremities Equipment Transfer Assistive Device Gait Belt,Front Wheeled Walker Transfers Transfer Destination Chair Transfer Technique pt ambulated with FWW Transfer Ability Level of Assist Standby Assistance Comments Mobility Comments Pt was lying in the bed when PT arrived. He completed supine to sit with HOB flat SBA and was able to sit EOB without UE support. He completed sit to stand with PT stabilizing the walker CGA and walked around the edge of the bed to sit on the chair, completing the transfer SBA with good attention to safety. He then stood from the chair with appropriate use of BUE to push off the arms SBA and ambulated to the matt. After completing stair and gait training, he returned to the room and transferred to the chair. He was left with call light and all needs in reach. He agreed to use the call light for all mobility needs. Gait Assessment Gait Gait Assistance Required: Standby Assistance Distance (Feet) 150 Able to Maintain Weight Bearing Status Yes During Gait Assistive Devices Assistive Device Gait Belt,Front Wheeled Walker Orthotic/Prosthetic Devices or Brace: No Gait Deviations General Gait Pattern Antalgic,Decreased Stride Length,Decreased Feet Clearance,Step-to Gait Factors Limiting Gait Function Factors Limiting Gait Function Decreased Activity Tolerance, Decreased Strength,Limited Range of Motion,Pain Comments Gait Comments Pt ambulated in the halls ~150 feet with FWW SBA. He initiated gait by picking up the walker each stride but responded well to cues to push the walker for increased stability and for energy conservation. Stair Climbing Assessment Evaluation Level of Assist On Stairs Standby Assistance Devices Stair Climbing Assistive Devices Front Wheel Walker Technique/Endurance Stair Climbing Direction Ascend and Descend Stair Climbing Technique Step to Step Number of Steps Climbed 1 Query Text: Stair Climbing Set # Repetitions (reps) 2 Comments Stair Climbing Comments Pt demonstrated safe stair navigation using FWW without need for verbal cues. PT-Balance Assessment Sitting Balance and Reactions Static Sitting Balance Ability Normal Dynamic Sitting Balance Ability Normal Standing Balance and Reactions Static Standing Balance Ability Good Dynamic Standing Balance Ability Good Device Used FWW M5 PT-IP Objective Assessments Start: 06/24/20 12:38 Freq: NEEDED Status: Active Protocol: Document 06/24/20 15:39 AW (Rec: 06/24/20 15:54 AW [email or web address]) Orientation Orientation/Cognition Level of Alertness Alert Orientation Name,Day of Week,Place, Situation Language Function Ability Hard of Hearing Safety Awareness Understands Safety Issues Memory Description No Deficits Noted Gross Range of Motion Upper Extremity ROM Assessment Within Functional Limits Lower Extremity ROM Assessment Bilaterally Impaired Impairments 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 - limited AROM in dorsiflexion Strength Upper Extremity Strength Assessment Within Functional Limits Lower Extremity Strength Assessment Left Impaired Coordination Assessment Gross Coordination Gross Coordination WNL Sensation Assessment Sensation Gross Sensation WNL M6 PT-IP Treatment Start: 06/24/20 12:38 Freq: NEEDED Status: Active Protocol: Document 06/24/20 15:39 AW (Rec: 06/24/20 15:54 AW [email or web address]) Physical Therapy Treatment Exercises Exercises Ankle Pumps,Quad Sets,Heel Slides,Passive Knee Extension Hang Education Education Provided Precautions,Weight Bearing Status,Post-Op Packet,Safety Other Treatments Other Treatment Performed Provided education on role of PT, plan of care, and safe use of FWW. M7 PT-IP Assessment and Plan Start: 06/24/20 12:38 Freq: NEEDED Status: Active Protocol: Document 06/24/20 15:39 AW (Rec: 06/24/20 15:54 AW [email or web address]) PT Summary Assessment and Plan Potential Rehabilitation Potential Excellent Status of Condition at Evaluation Evolving Summary Impairments Pain,ROM,Strength,Balance, Transfers,Gait,Activity Tolerance Assessment Summary Theo is an 84yo man seen for PT evaluation on POD0 following L TKA. He has recent history of R TKA with good result. He is independent in all regards at baseline. He lives with his who will be available and able to provide all necessary assist at discharge. He required no more than SBA for mobility on evaluation and will be safe to discharge home with spouse assist and outpatient PT once medically cleared. Goals Bed Mobility Goal Independent Transfer Goal Independent,Front Wheeled Walker Gait Goal Independent,Front Wheel Walker Gait Distance 200 Other Goals - up/down 1 platform step with FWW IND Days to Meet Goals 1 Frequency of Treatment Frequency Of Treatment Twice a Day Treatment Plan Physical Therapy Treatment Plan Bed Mobility Training,Transfer Training,Gait Training, Therapeutic Exercise,Balance Retraining,Post Op Education, Discharge Planning,Hot or Cold Pack,Neuromuscular Re-ed, Coordination Retraining,Manual Therapy Recommendations To Nursing Amount of Assist Needed Standby Assistance Discharge Recommendations PT Discharge Recommendations Home with Assistance, Outpatient PT Transportation Needs at Discharge Private Vehicle
--- NOTE | 2020-06-24 15:59 | PC.NURSE ---
Addendum entered by Ginna Carmona R.N. 06/24/20 17:44: PIV DC'ed and tolerated well. pt belongings packed up, pt changed into personal clothing. Transferred to and then to personal vehicle by MEDICINE AIDE. No questions remained. Addendum entered by Ginna Carmona R.N. 06/24/20 17:03: DC education provided to pt and . No questions remain. Original Note: VALERIE Shift. pt AO and receptive to care. Ambulating in hallway with PT at start of shift. Reporting 2/10 pain and tolerable. LR infusing 100/hr to R FA. pt waiting to VOID. IS and water at bedside. in room. No concerns currently and expressing interest in DC'ing home today.
== END 2020-06-24 17:44 | disposition home or self-care (01) ==
LOC: OR 07:48 → AC 07:48
PROVIDERS: PCP Family Medicine; Referring Provider Family Medicine; Visit Provider Orthopaedic Surgery
PROC: 0SRD0JZ Replacement of Left Knee Joint with Synthetic Substitute, Open Approach (ICD-10-PCS; CPT 27447; principal; 2020-06-24 09:45)
DX: M17.12 Unilateral primary osteoarthritis, left knee (principal); I10 Essential (primary) hypertension; E78.5 Hyperlipidemia, unspecified
CPT/HCPCS: 27447; 73560; 94762; 97116; 97161; C1776; J0690; J2250; J3010

== ENCOUNTER → 2021-01-28 14:41 | Outpatient (CLI) | payer MEDICARE, OTHER, SELFPAY ==
[2020-06-24 15:23] VITALS: BMI 23.7
--- NOTE | 2021-01-28 14:42 | DI.RAD.S_ITS ---
PROCEDURE: XR THORACIC SPINE 3V INDICATIONS: mid throacic back pain TECHNIQUE: 3 views of the thoracic spine were acquired. COMPARISON: None. FINDINGS: Bones: No fractures or dislocations. No suspicious bony lesions. 12 pairs of ribs are noted, and appear intact where visualized. There is a moderate degree of degenerative disc disease along the entirety of the thoracic spine, and mild convex leftward scoliosis is centered at the upper lumbar spine with compensatory mild convex rightward scoliosis at the lower 3rd of the thoracic spine. A definite compression fracture is not seen. Soft tissues: No paravertebral stripe thickening. IMPRESSION: Generalize [id number] degenerative disc disease along the thoracic spine and extending into the upper lumbar spine, without compression fracture or subluxation. Dictated by: Williams Fuentes M.D. on 01/28/2021 at 16:54 Approved by: Williams Fuentes M.D. on 01/28/2021 at 16:55
== END ==
PROVIDERS: PCP Family Medicine; Referring Provider Family Medicine; Visit Provider Family Medicine
DX: M54.9 Dorsalgia, unspecified (principal); M51.34 Other intervertebral disc degeneration, thoracic region
CPT/HCPCS: 72072

== ENCOUNTER → 2021-03-27 08:29 | Outpatient (CLI) | payer MEDICARE, OTHER, SELFPAY ==
[2020-06-24 15:23] VITALS: BMI 23.7
--- NOTE | 2021-03-27 08:31 | DI.MRI.S_ITS ---
PROCEDURE: MR THORACIC SPINE WO CON INDICATIONS: thoracic pain TECHNIQUE: Noncontrast sagittal T1 spine echo and T2 fast spin echo, sagittal STIR, axial T1 and T2 fast spin echo through the thoracic spine. COMPARISON: None. FINDINGS: Image quality: Excellent. Alignment and Curvature: S shaped scoliosis in the thoracic spine with an upper thoracic dextroscoliosis and lower thoracic/thoracolumbar levoscoliosis. There is no listhesis. Mildly exaggerated thoracic kyphosis. Vertebral body heights are maintained. Bone Marrow: There is no suspicious focal marrow signal abnormality or significant bone marrow edema identified. Spinal Cord: Normal morphology and signal intensity of the thoracic cord. Normal position and appearance of the conus. There is no unenhanced evidence of significant intradural pathology. Regional Soft Tissues: Prevertebral and paraspinous soft tissues are within normal limits. Miscellaneous: There are shallow disc bulges at a few levels which flatten the ventral thecal sac but produces no mass effect upon the cord. Foraminal components of a few disc bulges contribute to mild neural foraminal narrowing without mass effect upon the exiting thoracic nerve roots. IMPRESSION: Moderate S-shaped thoracic scoliosis. Mild multi-level multi-factorial degenerative changes with no significant spinal canal or neural foraminal stenosis. Dictated by: Vinayak Handley M.D. on 03/27/2021 at 9:53 Approved by: Vinayak Handley M.D. on 03/27/2021 at 9:56
== END ==
PROVIDERS: PCP Family Medicine; Referring Provider Family Medicine; Visit Provider Family Medicine
DX: M54.6 Pain in thoracic spine (principal); M54.9 Dorsalgia, unspecified; M41.84 Other forms of scoliosis, thoracic region; M47.814 Spondylosis without myelopathy or radiculopathy, thoracic region
CPT/HCPCS: 72146

== ENCOUNTER → 2021-09-04 09:50 | Outpatient (CLI) | payer MEDICARE, OTHER, SELFPAY ==
[2020-06-24 15:23] VITALS: BMI 23.7
[2021-09-04 10:57] LABS: Add Manual Diff / Slide Review NO; Basophils Absolute Auto 0 /uL (0-100); Basophils Percent Auto 0.3 % (0-2); Eosinophils Absolute Auto 100 /uL (0-450); Hematocrit 43.7 % (41-53); Hemoglobin 14.9 g/dL (13.5-17.5); Lymphocytes Absolute Auto 900 /uL (1100-4500); Lymphocytes Percent Auto 22.3 % (25-40); Mean Corpuscular Hemoglobin 33.9 PG (26-34); Mean Corpuscular Volume 99.7 fL (80-100); Monocytes Absolute Auto 400 /uL (0-900); Monocytes Percent Auto 9.1 % (3-14); Neutrophils Absolute Auto 2700 /uL (1500-7000); Neutrophils Percent Auto 66.3 % (50-75); Platelet Count 184 X10^3/uL (150-400); Red Blood Cell Count 4.38 X10^6/uL (4.5-5.9); Red Cell Distribution Width 12.5 % (11.6-14.8)
[2021-09-04 11:13] LABS: Alanine Aminotransferase 28 IU/L (<50); Albumin Globulin Ratio 1.5 (1.0-2.8); Alkaline Phosphatase 92 U/L (38-126); Aspartate Aminotransferase 32 IU/L (17-59); BUN Creatinine Ratio 18.1 (6-22); Bilirubin Total 0.7 mg/dL (0.2-1.3); Blood Urea Nitrogen 17 mg/dL (9-20); Calcium 8.9 mg/dL (8.4-10.2); Carbon Dioxide 30 mmol/L (22-32); Chloride 105 mmol/L (98-107); Estimated Glomerular Filt Rate > 60.0 mL/min (>60); Globulin 2.6 g/dL (1.7-4.1); Glucose 100 mg/dL (80-110); HEMOLYSIS < 15 (0-50); Potassium 4.2 mmol/L (3.4-5.1); Sodium 141 mmol/L (137-145); Total Protein 6.6 g/dL (6.3-8.2)
[2021-09-04 11:38] LABS: Prostate Specific Antigen Scrn 1.97 ng/mL (0.1-4.0)
== END ==
PROVIDERS: PCP Family Medicine; Referring Provider Physician Assistant; Visit Provider Physician Assistant
DX: I20.8 Other forms of angina pectoris (principal); Z12.5 Encounter for screening for malignant neoplasm of prostate; I25.10 Atherosclerotic heart disease of native coronary artery without angina pectoris; Z77.098 Contact with and (suspected) exposure to other hazardous, chiefly nonmedicinal, chemicals
CPT/HCPCS: 36415; 80053; 85025; G0103

== ENCOUNTER → 2022-04-03 12:45 | Outpatient (CLI) | payer MEDICARE, OTHER, SELFPAY ==
[2020-06-24 15:23] VITALS: BMI 23.7
--- NOTE | 2022-04-03 | DI.MRI.S_ITS ---
PROCEDURE: MR LUMBAR SPINE WO CON INDICATIONS: Spinal stenosis, lumbar region TECHNIQUE: Noncontrast sagittal T1 spin echo and T2 fast echo, sagittal STIR, and T2 fast spin echo through the lumbar spine. Additional oblique axial T2 weighted images were obtained. In cases with scoliosis, additional coronal T2 fast spin echo may be performed. COMPARISON: None. FINDINGS: Image quality: Excellent. Alignment and Curvature: There is moderate levoconvex lumbar scoliosis. No focal AP alignment abnormality is seen. Bone Marrow: Marrow is of normal overall signal. No acute vertebral body compression fractures. Spinal Cord: Conus medullaris terminates at the L1 level. Visualized cord demonstrates normal signal and size. Paraspinous Soft Tissues: No paravertebral masses. T12-L1: Moderate loss of disc height and disc signal can be seen on the right side. Partially bridging endplate osteophytes are seen. There is at least moderate bilateral neural foraminal narrowing seen, right worse than left. Mild central canal narrowing is seen. L1-L2: At least moderate loss of disc height and disc signal can be seen on the right side. Bridging endplate osteophytes are seen, which are most prominent on the right side. Moderate generalized disc bulge is seen. There is a superimposed central disc protrusion. There is at least moderate right-sided and moderate left-sided neural foraminal narrowing. Moderate central canal narrowing is seen. L2-L3: There is at least moderate loss of disc height and disc signal seen on the right side. Bridging endplate osteophytes are seen, which are worst on the right, as on series 4, image 4. At least moderate disc bulge is seen, which is eccentric to the right. There is a superimposed central disc extrusion. There is a focal annular fissure seen posteriorly. There is moderate right-sided and no significant left-sided neural foraminal narrowing. At least moderate central canal narrowing is seen. L3-L4: Moderate loss of disc height and disc signal can be seen on the right side. Bridging endplate osteophytes are seen. At least moderate disc bulge is seen. A superimposed central disc extrusion is seen. Moderate facet joint hypertrophy is seen. Associated hypertrophy of the ligamentum flavum can be seen. There is at least moderate right-sided and moderate left-sided neural foraminal narrowing. Moderate to severe central canal narrowing is seen, as on series 9, image 5. L4-L5: Moderate to severe loss of disc height and disc signal can be seen. At least moderate disc bulge is seen, which is eccentric to the left. Moderate facet joint hypertrophy is seen. At least moderate bilateral neural foraminal narrowing can be seen. At least moderate central canal narrowing is seen. L5-S1: Moderate to severe loss of disc height and disc signal can be seen. Reactive marrow endplate changes are seen, which are hyperintense on T1-weighted and T2-weighted imaging and most consistent with fatty metaplasia (Modic type II changes). At least moderate disc bulge is seen, which is eccentric to the left. At least moderate facet hypertrophy is seen. There is moderate to severe bilateral neural foraminal narrowing seen, with an associated a degree of compression seen upon the exiting nerve roots. Moderate central canal narrowing is seen. IMPRESSION: Multiple levels of lumbar spine degenerative change are seen, which are overall worst at the L3-L4 and L5-S1 levels. There is moderate levoconvex lumbar scoliosis. Dictated by: Arian Frederick M.D. on 04/03/2022 at 13:18 Approved by: Arian Frederick M.D. on 04/03/2022 at 13:24
== END ==
PROVIDERS: PCP Family Medicine; Referring Provider Physical Medicine & Rehabilitation; Visit Provider Physical Medicine & Rehabilitation
DX: M48.062 Spinal stenosis, lumbar region with neurogenic claudication (principal); M47.816 Spondylosis without myelopathy or radiculopathy, lumbar region; M47.817 Spondylosis without myelopathy or radiculopathy, lumbosacral region; M41.86 Other forms of scoliosis, lumbar region
CPT/HCPCS: 72148

== ENCOUNTER → 2023-11-18 09:50 | Outpatient (CLI) | payer MEDICARE, OTHER, SELFPAY ==
[2020-06-24 15:23] VITALS: BMI 23.7
--- NOTE | 2023-11-18 09:53 | DI.CT.S_ITS ---
PROCEDURE: CT HEAD/BRAIN WO CON INDICATIONS: s/p subdural hematoma, craniotomy 10/06 and 10/09 TECHNIQUE: Noncontrast 4.5 mm thick angled axial sections acquired from the foramen magnum to the vertex, with coronal and sagittal reformats. For radiation dose reduction, the following was used: automated exposure control, adjustment of mA and/or kV according to patient size. COMPARISON: [facility], CT, CT HEAD/BRAIN WO CON, 10/05/2023, 8:22. [facility], MR, MR HEAD/BRAIN WO CON, 10/04/2023, 9:19. FINDINGS: Image quality: Mild streak artifact can be seen through the skull base. CSF spaces: Basal cisterns are patent. . The ventricles are symmetric in size and shape. Brain: There is a small amount of residual subdural hemorrhage seen on the right, which is largely low density. There is a mild amount of hyperdense material seen along the lateral aspect of the right frontal lobe, as on series 2, image 18. The maximum thickness of this process is 18 mm, as seen posteriorly, as on series 2, image 25. The majority of the right-sided subdural measures 7-8 mm in thickness. No midline shift is now seen. No intracranial masses. There is cerebral volume loss for age, with resultant ventricular and sulcal prominence. There are periventricular and deep white matter chronic small vessel ischemic changes. There is intracranial internal carotid artery atherosclerosis. Skull and face: Right-sided craniotomy change is seen. Calvarium and visualized facial bones appear intact, without suspicious lesions. Sinuses: Visualized sinuses and mastoids are clear. IMPRESSION: Interval right-sided craniotomy, with clear interval improvement in the previously seen right-sided subdural hemorrhage, which is largely low density. There is hyperdense material seen laterally, which is felt unlikely to represent an acute component, although mild recent hemorrhage is possible. Continued follow-up is recommended. Dictated by: Arian Frederick M.D. on 11/18/2023 at 9:15 Approved by: Arian Frederick M.D. on 11/18/2023 at 9:19
== END ==
LOC: CT 09:51
PROVIDERS: PCP Family Medicine; Referring Provider Family Medicine; Visit Provider Family Medicine
DX: S06.5X9D Traumatic subdural hemorrhage with loss of consciousness of unspecified duration, subsequent encounter (principal); Z98.890 Other specified postprocedural states
CPT/HCPCS: 70450

== ENCOUNTER → 2024-02-28 12:36 | Outpatient (CLI) | payer MEDICARE, OTHER, SELFPAY ==
[2020-06-24 15:23] VITALS: BMI 23.7
--- NOTE | 2024-02-28 | DI.CT.S_ITS ---
PROCEDURE: CT HEAD/BRAIN WO CON INDICATIONS: Nontraumatic subdural hemorrhage, unspecified TECHNIQUE: Noncontrast 4.5 mm thick angled axial sections acquired from the foramen magnum to the vertex, with coronal and sagittal reformats. For radiation dose reduction, the following was used: automated exposure control, adjustment of mA and/or kV according to patient size. COMPARISON: [facility], CT, CT HEAD/BRAIN WO CON, 12/24/2023, 12:10. [facility], MR, MR HEAD/BRAIN WO CON, 10/04/2023, 9:19. [facility], CT, CT HEAD/BRAIN WO CON, 10/05/2023, 8:22. [facility], CT, CT HEAD/BRAIN WO CON, 11/18/2023, 10:03. FINDINGS: Image quality: Diagnostic. CSF spaces: Basal cisterns are patent. No extra-axial fluid collections. The ventricles are symmetric in size and shape. 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 No new hemorrhage is seen. No intracranial masses. There is cerebral volume loss for age, with resultant ventricular and sulcal prominence. There are periventricular and deep white matter chronic small vessel ischemic changes. Focal right frontal lobe encephalomalacia is again seen, as on series 2, images 13 and 14. There is intracranial internal carotid artery atherosclerosis. Skull and face: Right-sided craniotomy change can be seen. Calvarium and visualized facial bones appear intact, without suspicious lesions. Sinuses: Visualized sinuses and mastoids are clear. IMPRESSION: Mild volume of residual subdural hemorrhage seen on the right, which demonstrates continued improvement compared to the prior. Overlying right-sided craniotomy. There is again seen focal encephalomalacia within the right frontal lobe. Dictated by: Arian Frederick M.D. on 02/28/2024 at 12:37 Approved by: Arian Frederick M.D. on 02/28/2024 at 12:39
== END ==
PROVIDERS: PCP Family Medicine; Referring Provider Physician Assistant; Visit Provider Physician Assistant
DX: I62.00 Nontraumatic subdural hemorrhage, unspecified (principal); G93.89 Other specified disorders of brain; I65.29 Occlusion and stenosis of unspecified carotid artery
CPT/HCPCS: 70450

== ENCOUNTER → 2024-03-20 13:41 | Outpatient (CLI) | payer MEDICARE, OTHER, SELFPAY ==
[2020-06-24 15:23] VITALS: BMI 23.7
== END ==
LOC: CAR 13:42
PROVIDERS: PCP Family Medicine; Referring Provider Family Medicine; Visit Provider Family Medicine
DX: R00.2 Palpitations (principal)
CPT/HCPCS: 93242

== ENCOUNTER → 2024-07-10 10:22 | Outpatient (CLI) | payer MEDICARE, OTHER, SELFPAY ==
[2024-06-20 15:14] VITALS: BMI 23.7
== END ==
LOC: WC 11:20
PROVIDERS: PCP Family Medicine; Referring Provider Family Medicine; Visit Provider Surgery
DX: S51.801A Unspecified open wound of right forearm, initial encounter (principal); L98.8 Other specified disorders of the skin and subcutaneous tissue; L53.9 Erythematous condition, unspecified
CPT/HCPCS: 97602; 99203

== ENCOUNTER → 2024-07-18 11:36 | Outpatient (CLI) | payer MEDICARE, OTHER, SELFPAY ==
[2024-06-20 15:14] VITALS: BMI 23.7
== END ==
LOC: WC 07-19 11:37
PROVIDERS: PCP Family Medicine; Referring Provider Family Medicine; Visit Provider Surgery
DX: S51.801A Unspecified open wound of right forearm, initial encounter (principal); L98.8 Other specified disorders of the skin and subcutaneous tissue; L53.9 Erythematous condition, unspecified
CPT/HCPCS: 97602; 99213